=== PATIENT | male | born 1960 | race Hispanic/Latino ===

== ENCOUNTER 2016-04-03 12:18 | Inpatient (IN) | payer OTHER ==
[~2016-04-03] VITALS: Ht 165.1 cm; Wt 86.2 kg
[~2016-04-03 12:18] MED LIST: CITALOPRAM20 MG PO; DILAUDID2 MG PO; PERCOCET 325 MG1 TA2 PO; ZOFRAN ODT4 MG SL
--- NOTE | 2016-04-03 12:59 | ED GI/GU/ABDOMINAL COMPLAINT ---
History of Present Illness General Chief Complaint: Abdominal Pain/Flank Pain Stated Complaint: SEEN AT COMSTOCK FOR ABD. PAIN, NOT BETTER Source: patient, family Exam Limitations: no limitations Vital Signs & Intake/Output Vital Signs & Intake/Output Vital Signs Date Time Temp Pulse Resp B/P Pulse O2 O2 Flow FiO2 Ox Delivery Rate 04/04 0731 97.5 63 20 130/70 97 Room Air 04/03 2336 97.9 62 20 154/84 96 Room Air 04/03 2059 97.6 75 18 132/78 96 Room Air 04/03 1727 97.7 58 20 148/84 96 Room Air 04/03 1548 96.6 60 16 156/94 98 Room Air 04/03 1225 97.6 80 20 152/84 97 Room Air ED Intake and Output 04/04 0000 04/03 1200 Intake Total 2600 Output Total 1 Balance 2599 Intake, IV 2600 Output, Urine 1 Patient 190 lb Weight Allergies Coded Allergies: shrimp (Intermediate, EDEMA 04/03/16) Triage Note: PT C/O ABDOMINAL PAIN WITH N/V X 10 DAYS. SEEN AT COMSTOCK FOR SAME ON THE . PT STATES HE CAN'T SLEEP AT NIGHT D/T THE PAIN Triage Nurses Notes Reviewed? yes Duration: getting worse, intermittent Timing: recent history Severity Numbers: 7 Location: right upper quadrant Radiation: back Activities at Onset: eating Prior Abdominal Problems: similar symptoms HPI: Patient is a 55-year-old male with a past medical history of type 2 diabetes, insulin-dependent, pancreatitis, and recurrent gallstones who presents emergency room with concerns of a remote history of 5 years of right upper quadrant pain which patient was seen at [facility] on 03/26/2016 for concerns of right upper quadrant pain. Patient did bring blood work in showing ultrasound report of multiple calculi and gallstone however no concerns of gallbladder infection. Patient does present with daughter who does translate and which daughter states that patient recently moved in with her from [facility] and does not have a primary care doctor or surgeon to follow-up with. Patient states that he's had multiple episodes of nonbloody nonbilious emesis and is been intolerable of by mouth and last 24 hours. Currently complains of 7 at 10 localized right upper quadrant pain. Last alcoholic beverage WAS THREE BEERS ON . Last bowel movement was in last 24 hours no blood no melena noted. (HIMANSHU AYON) Reconcile Medications HYDROMORPHONE HCL (Dilaudid) 2 MG TABLET 1 TAB PO TID PAIN Hydroxyzine Pamoate 50 MG CAPSULE 1 CAP PO DAILY ANXIETY (Reported) Insulin-Lantus (Lantus) 100 UNIT/ML VIAL DIABETES (Reported) Ondansetron (Zofran Odt) 4 MG TAB.RAPDIS 1 TAB SL Q8 NAUSEA OXYCODONE HCL/ACETAMINOPHEN (Percocet 5-325 MG Tablet) 325 MG/5 MG TAB 1-2 TAB PO Q4-6 PRN PRN PAIN Pantoprazole Sodium 20 MG TABLET.DR 20 MG PO DAILY GERD (Reported) Sertraline HCl 100 MG TABLET 150 MG PO DAILY DEPRESSION (Reported) Tamsulosin HCl 0.4 MG CAP.ER.24H 0.4 MG PO DAILY PROSTATE (Reported) (DIONICIO THURSTON,ANUJA) Past History Travel History Traveled to [place] past 21 day No Medical History Any Pertinent Medical History? see below for history Psychiatric: depression Endocrine: diabetes Surgical History Surgical History: appendectomy Psychosocial History What is your primary language Macedonian Tobacco Use: Current Daily Use Daily Tobacco Use Amount/Type: => 5 Cigarettes daily ETOH Use: denies use Illicit Drug Use: denies illicit drug use Family History Hx Contributory? No (HIMANSHU AYON) Review of Systems Review of Systems Constitutional: Reports: see HPI. EENTM: Reports: no symptoms. Respiratory: Reports: no symptoms. Cardiovascular: Reports: no symptoms. GI: Reports: see HPI, abdominal pain, nausea. Genitourinary: Reports: no symptoms. Musculoskeletal: Reports: no symptoms. Skin: Reports: no symptoms. Neurological/Psychological: Reports: no symptoms. Hematologic/Endocrine: Reports: no symptoms. Immunologic/Allergic: Reports: no symptoms. All Other Systems: Reviewed and Negative (HIMANSHU AYON) Physical Exam Physical Exam General Appearance: mild distress Gastrointestinal: normal bowel sounds, soft, MODERATE RIGHT UPPER QUADRANT PAIN, POSITIVE [place] SIGN, NO EPIGASTRIC PAIN, NO REBOUND TENDERNESS NO PERITONEAL SIGNS Comments: HEENT: Normal EENT exam, extraocular motion intact, no nystagmus. Pupils equally round and reactive to light and accommodation. Nose is atraumatic. External auditory canal and Tympanic membranes clear. Pharynx normal. No swelling or edema. No icterus Neck: Supple, no lymphadenopathy, normal range of motion without pain or tenderness Back: Nontender, RIGHT CVA tenderness. Cardiovascular: Regular rate and rhythms no murmurs rubs or gallops, normal JVP Respiratory: Chest nontender. No respiratory distress.breath sounds clear to auscultation bilaterally Extremity: No edema, no calf tenderness to palpation, normal and equal pulses. Neuro: Alert oriented x3, motor sensory normal, Skin: No appreciable rash on exposed skin, skin is warm and dry. No jaundice Psych: Mood and affect is normal, memory and judgment is normal. Core Measures ACS in differential dx? No Severe Sepsis Present: No Septic Shock Present: No (DRAKE ARANDA,HIMANSHU) Progress Differential Diagnosis: AAA, AMI, biliary colic, bowel obstruction, colon cancer , cholecystitis, diverticulitis, epididymitis, esophageal varices, gastritis, hepatitis, hernia, hemorrhoids, ischemic bowel, inflamm bowel dis, Leslie-Eliza tear, orchitis, pancreatitis, prostatitis, peptic ulcer, PUD/GERD, perforated viscous, pyelonephritis, SBO, STD, testicular torsion, ureterolithiasis, urinary retention, urethritis, UTI/pyelo Plan of Care: Orders Procedure Date/time Status Nothing by Mouth 04/04 B Active VIT D 25 HYDROXY 04/04 06 Complete RBC FOLATE Ref$ 04/04 0600 Active HEPATIC FUNCTION PANEL 04/04 06 Complete CBC WITHOUT DIFFERENTIAL 04/04 06 Complete BASIC ELECTROLYTES PLUS BUN&CR 04/04 06 Complete VITAMIN B12 04/04 0600 Complete Vital Signs 04/03 2213 Active Teach/Educate 04/03 221 Active Nutritional Intake, Monitor 04/03 221 Active Isolation 04/03 2213 Active Intake & Output 04/03 2213 Active Patient Care Conference 04/03 2213 Active Activity/Ambulation 04/03 2213 Active BLOOD CULTURE 04/03 205 Active Pathway - chart 04/03 2001 Active Pathway - chart 04/03 1999 Active Patient Data 04/03 1999 Active Patient Data 04/03 1627 Active Admit to inpatient 04/03 1613 Active Vital Signs 04/03 1613 Active Code Status 04/03 1613 Active LACTIC ACID 04/03 1603 Complete EKG 04/03 1440 Active Add-on Test (ER Only) 04/03 1420 Active Add-on Test (ER Only) 04/03 1354 Active CULTURE,URINE 04/03 1335 Active Intake & Output 04/03 1332 Active ETHANOL 04/03 1317 Complete URINALYSIS 04/03 1304 Complete PARTIAL THROMBOPLASTIN TIME 04/03 1304 Complete PROTHROMBIN TIME 04/03 1304 Complete TYPE & SCREEN (NOT X-MATCH) 04/03 1304 Complete TROPONIN LEVEL 04/03 1303 Complete LIPASE 04/03 1303 Complete LACTIC ACID 04/03 1303 Complete DIRECT BILIRUBIN 04/03 1303 Complete COMPREHENSIVE METABOLIC PANEL 04/03 1303 Complete CBC WITHOUT DIFFERENTIAL 04/03 1303 Complete AMYLASE 04/03 1303 Complete ACETONE 04/03 1303 Complete House Staff 04/03 UNK Active VTE Mechanical Prophylaxis 04/03 UNK Active FingerStick- Glucose 04/03 UNK Active Current Medications Sig/Danuta Start time Last Medication Dose Stop Time Status Admin Gabapentin 100 MG Q8 04/04 1400 UNVr (Neurontin) Dextrose/Lactated 1,000 ML Q8H 04/04 1030 UNVr Ringer's (D5W in Lactated Ringers) Insulin Detemir 20 UNITS BID 04/04 1020 UNVr (Levemir) Insulin Detemir 30 UNITS BID 04/04 1000 CAN (Levemir) Insulin Aspart 0 TIDAC 04/04 0800 AC (NovoLOG) Acetaminophen 650 MG Q4P PRN 04/03 2100 AC (Tylenol) Ondansetron HCl 4 MG Q6P PRN 04/03 2100 AC (Zofran) Acetaminophen 650 MG Q6P PRN 04/03 2000 CAN (Tylenol) Laboratory Tests 04/04/16 0650: RBC Folate Pending 04/04/16 0650: Anion Gap 9, Estimated GFR > 60, BUN/Creatinine Ratio 8.6, Total Bilirubin 1.3, Direct Bilirubin 0.7 H, AST 44, ALT 47, Alkaline Phosphatase 104, Total Protein 5.9 L, Albumin 2.7 L, Vitamin B12 877, 25-OH Vitamin D Total 12.7 L, CBC w Diff NO MAN DIFF REQ, RBC 3.82 L, MCV 93.2, MCH 32.1 H, RDW 14.3, MPV 8.0, Gran % 54.0, Lymphocytes % 31.7, Monocytes % 9.5 H, Eosinophils % 4.3, Basophils % 0.5, Absolute Granulocytes 2.5, Absolute Lymphocytes 1.5, Absolute Monocytes 0.4, Absolute Eosinophils 0.2, Absolute Basophils 0, PUBS MCHC 34.5 04/03/16 1520: Lactic Acid 1.6 04/03/16 1335: Urinalysis LIGHT H, Urine Color MEHDI, Urine Clarity CLEAR, Urine pH 6.5, Ur Specific [place] 1.015, Urine Protein TRACE H, Urine Ketones NEG, Urine Nitrite NEG, Urine Bilirubin POS@ICTO H, Urine Urobilinogen 4.0 H, Ur Leukocyte Esterase NEG, Ur Microscopic SEDIMENT EXAMINED, Urine RBC 3-5, Urine WBC 1-3 H, Ur Epithelial Cells FEW, Urine Mucus FEW, Urine Hemoglobin TRACE-INTACT H, Urine Glucose >=1000 H 04/03/16 1317: Anion Gap 13, Estimated GFR > 60, BUN/Creatinine Ratio 11.7, Glucose 248 H, Lactic Acid 2.2 H, Calcium 8.6, Total Bilirubin 1.5 H, Direct Bilirubin 0.9 H , AST 51, ALT 57, Alkaline Phosphatase 161 H, Troponin I < 0.01, Total Protein 7.0, Albumin 3.3 L, Globulin 3.7, Albumin/Globulin Ratio 0.9 L, Amylase 156 H , Lipase 544 H, PT 12.0, INR 1.14, APTT 32, CBC w Diff NO MAN DIFF REQ, RBC 4.43 L, MCV 92.2, MCH 32.0 H, RDW 14.4, MPV 8.5, Gran % 68.0, Lymphocytes % 21.7, Monocytes % 8.3, Eosinophils % 1.8, Basophils % 0.2, Absolute Granulocytes 3.2, Absolute Lymphocytes 1.0 L, Absolute Monocytes 0.4, Absolute Eosinophils 0.1, Absolute Basophils 0, PUBS MCHC 34.7, Serum Alcohol < 10.0, Acetone Level NEGATIVE 04/03/16 1305: Acetone Level Cancelled 04/03/16 1304: Troponin I Cancelled Microbiology 04/04 0020 BLOOD: Blood Culture - RECD 04/04 0005 BLOOD: Blood Culture - RECD 04/03 1335 URINE ROUT: Urine Culture - RES ER records indicate unremarkable liver function test 1.4 total bilirubin WBC 7.1 platelets 85 LAST LIPASE - 99 AT COMSTOCK FROM COMSTOCK- Patient was given medications of Maalox Toradol Xylocaine and Zofran 04/03/2016 1:57:26 PM-patient states that he had minimal improvement of the symptoms. Patient's urinalysis did show many bacteria which patient also had right-sided CVA point tenderness in which there is concerns of pyelonephritis ketorolac will be administered 04/03/2016 2:39:12 PM patient was made aware of concerns of gallstones with no cholecystitis however patient does have concerns of pancreatitis however no concerns of gallstone pancreatitis and THE COMMON bile duct was within normal range. Patient had complaints of scant urination production and had many WBC noted in urine and which urine currently is cultured however CT scan WAS ORDERED for concerns of pyelonephritis and further evaluation of his abdominal complaints. Discussed patient with Dr. GREENBERG who agrees with disposition and plan. Patient will be nothing by mouth (DRAKE ARANDA,HIMANSHU) Diagnostic Imaging: Viewed by Me: Ultrasound. Radiology Impression: SEE COMMENTS Initial ED EKG: normal p-waves, normal QRS complex, 62 BPM, LVH Comments: PATIENT: SAYRA COBOS PRESENT AGE: 55 PATIENT ACCOUNT NO: [id number] : 59 LOCATION: [facility] ORDERING PHYSICIAN: HIMANSHU ARANDA SERVICE DATE: 04/03/16 EXAM TYPE: CAT - CT ABD & PELVIS W IV CONTRAST EXAMINATION: CT ABDOMEN AND PELVIS WITH CONTRAST CLINICAL INFORMATION: Right upper quadrant pain. Gallstone pancreatitis. COMPARISON: Ultrasound of abdomen 04/03/2016. CT abdomen and pelvis 08/29/2013. TECHNIQUE: Multidetector volumetric imaging was performed of the abdomen and pelvis before and after the IV administration of 95 mL of Optiray 320 intravenous contrast. Sagittal and coronal reformatted images were obtained on the technologist's workstation. DLP: 447.35 mGy-cm. FINDINGS: LUNG BASES: The visualized lung bases are unremarkable. LIVER, GALLBLADDER, AND BILIARY TREE: There is mild lobulation of the surface of the liver consistent with cirrhosis. No focal liver lesion. No intrahepatic bile duct dilatation. There are numerous small partially calcified gallstones layering dependently in the neck of the gallbladder. No gallbladder wall thickening. No bile duct dilatation. The extrahepatic CBD measures 5 mm and tapers to the ampulla with no calcified stone within the duct. PANCREAS: Unremarkable. SPLEEN: The spleen is enlarged. Measures 15.1 cm superior inferior. ADRENAL GLANDS: Unremarkable. KIDNEYS AND URETERS: The kidneys are normal in size, shape, and attenuation. No hydronephrosis, hydroureter, or calculi seen. No perinephric stranding. The small renal stones noted on the CT scan abdomen pelvis of 08/29/2013 not apparent on this exam which used IV contrast. BLADDER: Unremarkable. GASTROINTESTINAL TRACT: There are scattered diverticula of the colon. No diverticulitis. No acute change of the bowel. No bowel obstruction. No bowel wall thickening or edema. The appendix is normal. The small bowel loops are normal. ABDOMINAL WALL: There is a right-sided spigelian hernia. There is a defect in the right lateral abdominal wall at the level of the iliac crest fat herniating through the defect. The defect measures 3.8 cm transverse axial image 446 (3). The herniated fat pocket measures 10 x 3 x 7 cm. There is a superficial fascial plane containing a herniated fat from the subcutaneous tissue. LYMPH NODES: Normal. VASCULAR: No evidence of portal hypertension. There is a recannulated umbilical vein. Normal enhancement of the portal vein and splenic vein with no thrombosis. PELVIC VISCERA: Prostate measures 4.3 cm transverse. Seminal vesicles unremarkable. OSSEOUS STRUCTURES: Bridging degenerative osteophytes at the lower thoracic vertebrae. Small degenerative spurs of the endplates of lumbar vertebrae. IMPRESSION: 1. Cholelithiasis. No acute change of gallbladder wall. No bile duct dilatation. Normal pancreas. 2. Mild diverticulosis of colon. No acute change of bowel. 3. Changes of cirrhosis of liver with lobular contour of liver and recannulated umbilical vein and splenomegaly from portal hypertension. 4. Fat-containing right-sided spigelian ventral wall hernia DICTATED BY: SILVIA FRASER MD PATIENT: SAYRA COBOS PRESENT AGE: 55 PATIENT ACCOUNT NO: [id number] : 58 LOCATION: [facility] ORDERING PHYSICIAN: HIMANSHU ARANDA SERVICE DATE: 04/03/16-4047 EXAM TYPE: US - US-LIMITED ABDOMEN EXAMINATION: US ABDOMEN LIMITED CLINICAL INFORMATION: Right upper quadrant pain; history of gallstones. COMPARISON: Abdominal ultrasound examinations dated 08/31/2013 and 08/29/2013; CT abdomen and pelvis dated 08/29/2013. TECHNIQUE: Real-time imaging of the right upper quadrant abdominal viscera. FINDINGS: PANCREAS: Somewhat diminutive but normal in echotexture, without focal finding. The pancreatic tail is suboptimally seen secondary to overlapping bowel gas. LIVER: Normal. The liver demonstrates normal size, a mildly lobulated contour and echogenicity. No focal lesion or intrahepatic biliary duct dilatation. GALLBLADDER: There is cholelithiasis. The gallbladder is physiologically distended without evidence of polyps, wall thickening or pericholecystic fluid. COMMON BILE DUCT: Normal in caliber measuring 0.4 cm in diameter. RIGHT KIDNEY: Normal. No hydronephrosis. No renal calculi or focal parenchymal lesions. The kidney measures 9.4 cm in maximum dimension. FREE FLUID: None. IMPRESSION: 1. There is cholelithiasis, without cholecystitis or choledocholithiasis. 2. Limited ultrasound evaluation of the pancreas. (HIMANSHU AYON) Departure Departure Disposition: STILL A PATIENT Condition: Stable Clinical Impression Primary Impression: Pancreatitis Secondary Impressions: Gallstone, Hyperglycemia, UTI (urinary tract infection) Referrals: PATIENT HAS NO PRIMARY CARE DR (PCP/Family) Departure Forms: Customer Survey General Discharge Information Admission Note Spoke With: NICK ROLLINS MD Documentation of Exam: Documentation of any treatments & extenuating circumstances including Concerns Regarding Discharge (functional status, medication knowledge or non-compliance, living conditions, etc.) that warrant an admission rather than observation: [ Discussed patient with Dr. ROLLINS who agrees with general medicine admission for conditions and pancreatitis gallstones and urinary tract infection which patient requires GI consultation surgery consultation IV antibiotics IV pain medication and IV antibiotics. Outpatient treatment at this time due to unresolved pain and nausea and concerns of gallstone pancreatitis would be medically harmful] (HIMANSHU AYON) PA/ELECTROPHYSIOLOGY TECH Co-Sign Statement Statement: ED Attending supervision documentation- [] I saw and evaluated the patient. I have also reviewed all the pertinent lab results and diagnostic results. I agree with the findings and the plan of care as documented in the PA's/ELECTROPHYSIOLOGY TECH's documentation. [X] I have reviewed the ED Record and agree with the PA's/ELECTROPHYSIOLOGY TECH's documentation. [] Additions or exceptions (if any) to the PAs/ELECTROPHYSIOLOGY TECH's note and plan are summarized below: [] (DIONICIO THURSTON,ANUJA)
[2016-04-03 13:38] LABS: ABSOLUTE BASOPHIL COUNT 0 /CUMM (0.0-0.2); ABSOLUTE EOSINOPHIL COUNT 0.1 /CUMM (0.0-0.7); ABSOLUTE GRANULOCYTE CT 3.2 /CUMM (1.4-6.5); ABSOLUTE MONOCYTE COUNT 0.4 /CUMM (0.10-0.60); BASOPHIL % 0.2 % (0.0-2.0); EOSINOPHIL % 1.8 % (0-5); HEMATOCRIT 40.8 % (42-52); MEAN CORPUSCULAR HGB CONC 34.7 G/DL (33.0-37.0); MEAN CORPUSCULAR VOLUME 92.2 FL (80.0-94.0); MEAN PLATELET VOLUME 8.5 FL (7.4-10.4); PLATELET COUNT 70 /CUMM (130-400); RBC DISTRIBUTION WIDTH 14.4 % (11.5-14.5); RED BLOOD CELL CT 4.43 /CUMM (4.70-6.10); WHITE BLOOD CELL COUNT 4.8 /CUMM (4.8-10.8)
[2016-04-03 13:46] LABS: PTT 32 SEC (25-37)
--- NOTE | 2016-04-03 14:07 | ULTRASOUND REPORT ---
EXAMINATION: US ABDOMEN LIMITED CLINICAL INFORMATION: Right upper quadrant pain; history of gallstones. COMPARISON: Abdominal ultrasound examinations dated 08/31/2013 and 08/29/2013; CT abdomen and pelvis dated 08/29/2013. TECHNIQUE: Real-time imaging of the right upper quadrant abdominal viscera. FINDINGS: PANCREAS: Somewhat diminutive but normal in echotexture, without focal finding. The pancreatic tail is suboptimally seen secondary to overlapping bowel gas. LIVER: Normal. The liver demonstrates normal size, a mildly lobulated contour and echogenicity. No focal lesion or intrahepatic biliary duct dilatation. GALLBLADDER: There is cholelithiasis. The gallbladder is physiologically distended without evidence of polyps, wall thickening or pericholecystic fluid. COMMON BILE DUCT: Normal in caliber measuring 0.4 cm in diameter. RIGHT KIDNEY: Normal. No hydronephrosis. No renal calculi or focal parenchymal lesions. The kidney measures 9.4 cm in maximum dimension. FREE FLUID: None. IMPRESSION: 1. There is cholelithiasis, without cholecystitis or choledocholithiasis. 2. Limited ultrasound evaluation of the pancreas.
[2016-04-03] MEDS ORDERED: PANTOPRAZOLE SO20 M1 PO (14:22)
[2016-04-03] MEDS ORDERED: SERTRALINE HCL100 MG PO (14:23)
[2016-04-03] MEDS ORDERED: LANTUS100 UNIT/1 SQ (14:23)
[2016-04-03] MEDS ORDERED: TAMSULOSIN HCL0.4 M1 PO (14:24)
--- NOTE | 2016-04-03 15:10 | CT SCAN REPORT ---
EXAMINATION: CT ABDOMEN AND PELVIS WITH CONTRAST CLINICAL INFORMATION: Right upper quadrant pain. Gallstone pancreatitis. COMPARISON: Ultrasound of abdomen 04/03/2016. CT abdomen and pelvis 08/29/2013. TECHNIQUE: Multidetector volumetric imaging was performed of the abdomen and pelvis before and after the IV administration of 95 mL of Optiray 320 intravenous contrast. Sagittal and coronal reformatted images were obtained on the technologist's workstation. DLP: 447.35 mGy-cm. FINDINGS: LUNG BASES: The visualized lung bases are unremarkable. LIVER, GALLBLADDER, AND BILIARY TREE: There is mild lobulation of the surface of the liver consistent with cirrhosis. No focal liver lesion. No intrahepatic bile duct dilatation. There are numerous small partially calcified gallstones layering dependently in the neck of the gallbladder. No gallbladder wall thickening. No bile duct dilatation. The extrahepatic CBD measures 5 mm and tapers to the ampulla with no calcified stone within the duct. PANCREAS: Unremarkable. SPLEEN: The spleen is enlarged. Measures 15.1 cm superior inferior. ADRENAL GLANDS: Unremarkable. KIDNEYS AND URETERS: The kidneys are normal in size, shape, and attenuation. No hydronephrosis, hydroureter, or calculi seen. No perinephric stranding. The small renal stones noted on the CT scan abdomen pelvis of 08/29/2013 not apparent on this exam which used IV contrast. BLADDER: Unremarkable. GASTROINTESTINAL TRACT: There are scattered diverticula of the colon. No diverticulitis. No acute change of the bowel. No bowel obstruction. No bowel wall thickening or edema. The appendix is normal. The small bowel loops are normal. ABDOMINAL WALL: There is a right-sided spigelian hernia. There is a defect in the right lateral abdominal wall at the level of the iliac crest fat herniating through the defect. The defect measures 3.8 cm transverse axial image 446 (3). The herniated fat pocket measures 10 x 3 x 7 cm. There is a superficial fascial plane containing a herniated fat from the subcutaneous tissue. LYMPH NODES: Normal. VASCULAR: No evidence of portal hypertension. There is a recannulated umbilical vein. Normal enhancement of the portal vein and splenic vein with no thrombosis. PELVIC VISCERA: Prostate measures 4.3 cm transverse. Seminal vesicles unremarkable. OSSEOUS STRUCTURES: Bridging degenerative osteophytes at the lower thoracic vertebrae. Small degenerative spurs of the endplates of lumbar vertebrae. IMPRESSION: 1. Cholelithiasis. No acute change of gallbladder wall. No bile duct dilatation. Normal pancreas. 2. Mild diverticulosis of colon. No acute change of bowel. 3. Changes of cirrhosis of liver with lobular contour of liver and recannulated umbilical vein and splenomegaly from portal hypertension. 4. Fat-containing right-sided spigelian ventral wall hernia
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
[2016-04-03 23:36] VITALS: BP 154/84
[2016-04-04] MEDS ORDERED: HYDROXYZINE PAM50 M1 PO (00:46)
[2016-04-04 07:31] VITALS: BP 130/70
[2016-04-04 08:18] LABS: ABSOLUTE BASOPHIL COUNT 0 /CUMM (0.0-0.2); ABSOLUTE EOSINOPHIL COUNT 0.2 /CUMM (0.0-0.7); ABSOLUTE GRANULOCYTE CT 2.5 /CUMM (1.4-6.5); ABSOLUTE MONOCYTE COUNT 0.4 /CUMM (0.10-0.60); BASOPHIL % 0.5 % (0.0-2.0)
--- NOTE | 2016-04-04 08:21 | PN- General Surgery ---
Surgical Brief Attending Note Brief Attending Note: pt seen and examined please keep npo as hx consistent with cholecystitis and will add on to OR schedule for today as long as his LFT'd so not increase. If pt has bump in LFT's than would get MRCP and GI consult to r/o CBD stone await repeat LFT's
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
[2016-04-04 08:52] LABS: ABSOLUTE LYMPH COUNT 1.5 /CUMM (1.2-3.4); EOSINOPHIL % 4.3 % (0-5); MEAN CORPUSCULAR HGB 32.1 PG (27.0-31.0); MEAN CORPUSCULAR HGB CONC 34.5 G/DL (33.0-37.0); MEAN CORPUSCULAR VOLUME 93.2 FL (80.0-94.0); RBC DISTRIBUTION WIDTH 14.3 % (11.5-14.5); RED BLOOD CELL CT 3.82 /CUMM (4.70-6.10); WHITE BLOOD CELL COUNT 4.7 /CUMM (4.8-10.8)
[2016-04-04 09:00] LABS: HEMATOCRIT 35.6 % (42-52)
[2016-04-04 10:17] LABS: PLATELET COUNT 66 /CUMM (130-400)
--- NOTE | 2016-04-04 13:39 | PN- Student ---
Subjective Subjective: This is a 55 yo M w. PMHx of T2DM, cholecystitis, recurrent pancreatitis and reccurent gallstones, recently seen at [facility] on 03/27 for multiple gall stones, who was admitted to [facility] on 04/03 after presenting w/ severe, sharp, constant RUQ pain radiating to the R flank that is worse with food and change in position. HPI: Pt reports pain in this distribution at 3-4/10 for the last 8 months, with a major progression in his symptoms in the last 8 days, at that time reaching a 9/ 10 and associated w/ fever, chills, nausea and nonbloody vomiting. He was seen at [facility] ED on 03/27 w/ the same symptoms and was diagnosed w/ multiple gallstones and sent home w/ omeprazole and pain mgmt. He was first diagnosed w/ pancreatitis in 2012 and was found to have multiple gallstones during a hospitilization in 2013 for cholecystitis. Cholecystectomy was odiscussed after infection calmed down, but pt wa slost to f/u. Pt also reports heavy alcohol use for many years, drinking at least 6 beers daily, until stopping 3 months ago. He currently reports no EtOH. PMHx: Depression, T2DM, recurrent pancreatitis, recurrent cholelithiasis SHx: Appendectomy FamHx non-contributory SocHx: Denies EtOH, rec drugs. Current smoker w/ 40 pack yr hx Current Medications Sig/Danuta Start time Last Medication Dose Stop Time Status Admin Acetaminophen 650 MG Q4P PRN 04/03 2100 AC (Tylenol) Acetaminophen 650 MG Q6P PRN 04/03 2000 CAN (Tylenol) Gabapentin 100 MG Q8 04/04 1400 AC (Neurontin) Hydromorphone HCl 0.6 MG ONCE ONE 04/04 1330 CAN (Dilaudid) 04/04 1331 Insulin Aspart 0 TIDAC 04/04 0800 AC (NovoLOG) Insulin Detemir 20 UNITS BID 04/04 1020 AC (Levemir) Insulin Detemir 30 UNITS BID 04/04 1000 CAN (Levemir) Ondansetron HCl 4 MG Q6P PRN 04/03 2100 AC (Zofran) Allergies: NKDA. Shrimp (swelling) Objective Objective: Vital Signs Date Time Temp Pulse Resp B/P Pulse O2 O2 Flow FiO2 Ox Delivery Rate 04/04 0731 97.5 63 20 130/70 97 Room Air 04/03 2336 97.9 62 20 154/84 96 Room Air 04/03 2059 97.6 75 18 132/78 96 Room Air 04/03 1727 97.7 58 20 148/84 96 Room Air 04/03 1548 96.6 60 16 156/94 98 Room Air PE: General - AOX3. Cooperative w/ interview although chiefly greek speaking. Pt is in clear discomfort upon movement Cardiac - RRR, S1S2, no m/r/g Lungs - CTA BL Abd - Soft, nondistended with extreme tenderness to palpation of RUQ or R flank. + Schwazr sign. Rest of the abdomen NTTP. No heaptomegaly noted. Ext - No edema noted. Last 24 Hours I&Os 04/04 1600 04/04 0800 04/04 0000 Intake Total 1600 1600 Output Total 775 Balance 825 1600 Intake, IV 1600 1600 Output, Urine 775 Patient 190 lb Weight Laboratory Tests 04/04/16 0650: RBC Folate Pending 04/04/16 0650: Anion Gap 9, Estimated GFR > 60, BUN/Creatinine Ratio 8.6, Total Bilirubin 1.3, Direct Bilirubin 0.7 H, AST 44, ALT 47, Alkaline Phosphatase 104, Total Protein 5.9 L, Albumin 2.7 L, Amylase 130 H, Lipase 337 H, Vitamin B12 877, 25-OH Vitamin D Total 12.7 L, CBC w Diff NO MAN DIFF REQ, RBC 3.82 L, MCV 93.2, MCH 32.1 H, RDW 14.3, MPV 8.0, Gran % 54.0, Lymphocytes % 31.7, Monocytes % 9.5 H, Eosinophils % 4.3, Basophils % 0.5, Absolute Granulocytes 2.5, Absolute Lymphocytes 1.5, Absolute Monocytes 0.4, Absolute Eosinophils 0.2, Absolute Basophils 0, PUBS MCHC 34.5 04/04/16 0600: Hemoglobin A1c Pending 04/03/16 1520: Lactic Acid 1.6 Microbiology Date/Time Procedure - Status Source Growth 04/04 0020 Blood Culture - RECD BLOOD 04/03 1335 Urine Culture - RES URINE ROUT Assessment/Plan Assessment: This is a 55 yo M w. PMHx of T2DM, cholecystitis, recurrent pancreatitis and reccurent gallstones, recently seen at [facility] on 03/27 for multiple gall stones, who was admitted to [facility] on 04/03 after presenting w/ severe, sharp, constant RUQ pain radiating to the R flank that is worse with food and change in position. Elevated amylase and lipase at ED, cholelithiasis per US/CT and urobiliogen + bilirubin positive UA were all c/w a potential acute pancreatitis. LFTs were also elevated, although mildly so, causing concern per surgical consult for CBD stone requiring MRCP for confirmation, and then ERCP for tx, if that was the case. If LFTs on 04/04 remain stable, pt can be added to OR list for cholecystectomy today. Problem list includes (1) Acute pancreatitis (2) Cholelithiasis (3) T2DM (4) GERD (5) BPH Plan: 1) Acute pancreatitis and cholelithiasis -Surgical consult Dr. Lester = can be added to OR list today if LFTs remain stable -F/U LFTs -Bump in LFTs on 04/04, schedule for MRCP per surgical consult -Remain NPO -Zofran PRN for nausea -Pain mgmt on board -GI consult 2) T2DM -Continue home levemir 3) GERD -Continue omeprazole 20mg PO QD 4) BPH -Tamulosin .4mg PO QD
--- NOTE | 2016-04-04 13:57 | Cons- Gastroenterology ---
General Information and HPI Consulting Request Date of Consult: 04/04/16 Requested By: NICK ROLLINS MD Reason for Consult: Gallstone pancreatitis, increased LFTs, abdominal pain Source of Information: patient, old records Exam Limitations: language barrier History of Present Illness: Mr. Iqbal is a 55 year old male who presented to yesterday with complaints of RUQ pain and vomiting that he has been having for the past month and 2 weeks respectively. He has mid-epigastric abdominal pain that is exacerbated with eating and radiates to his RUQ and to the back. The pain is associated with bilious vomiting. He notes subjective intermittent fevers and chills at home. He has not noticed any jaundice, florence colored stool or dark urine. He does note that his stool has been blackish green with a scant amount of blood. He notes that the symptoms he has been having are similar in quality and severity as his prior attacks of pancreatitis. He is without any significant constipation or diarrhea. He does complain of some burning epigastric pain and early satiety for the past month that he is not taking any antacids for. In the ER he was afebrile and hemodynamically stable. He was given morphine for pain and had a surgical consultation who are planning to do a cholecystectomy later today provided his LFTs don't increase. He has been kept NPO and he continues to have some abdominal discomfort. Allergies/Medications Allergies: Coded Allergies: shrimp (Intermediate, EDEMA 04/03/16) Home Med List: HYDROMORPHONE HCL (Dilaudid) 2 MG TABLET 1 TAB PO TID PAIN Hydroxyzine Pamoate 50 MG CAPSULE 1 CAP PO DAILY ANXIETY (Reported) Insulin-Lantus (Lantus) 100 UNIT/ML VIAL DIABETES (Reported) Ondansetron (Zofran Odt) 4 MG TAB.RAPDIS 1 TAB SL Q8 NAUSEA OXYCODONE HCL/ACETAMINOPHEN (Percocet 5-325 MG Tablet) 325 MG/5 MG TAB 1-2 TAB PO Q4-6 PRN PRN PAIN Pantoprazole Sodium 20 MG TABLET.DR 20 MG PO DAILY GERD (Reported) Sertraline HCl 100 MG TABLET 150 MG PO DAILY DEPRESSION (Reported) Tamsulosin HCl 0.4 MG CAP.ER.24H 0.4 MG PO DAILY PROSTATE (Reported) Current Medications: Current Medications Sig/Danuta Start time Last Medication Dose Route Stop Time Status Admin Acetaminophen 650 MG Q4P PRN 04/03 2100 AC PO Acetaminophen 650 MG Q6P PRN 04/03 2000 CAN PO Ceftriaxone Sodium 0 .STK-MED ONE 04/03 1556 DC .ROUTE Ceftriaxone Sodium 1,000 MG ONCE ONE 04/03 1530 DC 04/03 IV 04/03 1531 1559 Dextrose 25 GM .STK-MED ONE 04/04 1008 DC IV 04/04 1009 Dextrose 25 GM ONCE ONE 04/04 0700 DC 04/04 IV 04/04 0701 0658 Dextrose 25 GM ONCE ONE 04/03 2330 DC 04/03 IV 04/03 2331 2330 Dextrose/Lactated 1,000 ML Q8H 04/04 1030 AC 04/04 Ringer's IV 1052 Docusate Sodium 100 MG BID 04/03 2200 AC 04/04 PO 0829 Enoxaparin Sodium 40 MG DAILY 04/03 1959 AC 04/04 SC 0051 Gabapentin 100 MG Q8 04/04 1400 AC PO Hydromorphone HCl 2 MG Q4P PRN 04/04 1400 UNVr IV Hydromorphone HCl 0.6 MG ONCE ONE 04/04 1330 CAN IV 04/04 1331 Hydromorphone HCl 1 MG Q4P PRN 04/04 1030 DC 04/04 IV 1051 Hydroxyzine HCl 50 MG DAILY 04/04 1000 AC 04/04 PO 0829 Influenza Virus 0.5 ML 1000 04/04 1000 DC Vaccine IM 04/04 1001 Insulin Aspart 0 TIDAC 04/04 0800 AC SC Insulin Detemir 20 UNITS BID 04/04 1020 AC SC Insulin Detemir 40 UNITS 1000 04/04 1000 DC SC Insulin Detemir 30 UNITS BID 04/04 1000 CAN SC Insulin Detemir 60 UNITS 2200 04/03 2200 DC SC Ketorolac 30 MG ONCE ONE 04/04 1330 DC 04/04 Tromethamine IV 04/04 1331 1336 Ketorolac 0 .STK-MED ONE 04/03 1406 DC Tromethamine .ROUTE Ketorolac 30 MG ONCE ONE 04/03 1400 DC 04/03 Tromethamine IV 04/03 1401 1413 Lactated Ringer's 1,000 ML Q6H 04/03 1945 DC 04/04 IV 0533 Morphine Sulfate 4 MG Q4P PRN 04/03 1830 DC 04/04 IV 0829 Morphine Sulfate 0 .STK-MED ONE 04/03 1821 DC .ROUTE Morphine Sulfate 2 MG ONCE ONE 04/03 1600 DC 04/03 IV 04/03 1601 1559 Morphine Sulfate 0 .STK-MED ONE 04/03 1556 DC .ROUTE Omeprazole 20 MG DAILY AC 04/04 0700 AC 04/04 PO 0533 Ondansetron HCl 4 MG Q6P PRN 04/03 2100 AC IV Oxycodone/ 0 .STK-MED ONE 04/03 2057 DC Acetaminophen PO Oxycodone/ 1 TAB Q6P PRN 04/03 2000 AC 04/04 Acetaminophen PO 0424 Senna/Docusate Sodium 1 TAB AT BEDTIME 04/03 2200 AC 04/04 PO 0050 Sodium Chloride 1,000 ML BOLUS ONE 04/03 1500 DC 04/03 IV 04/03 1559 1523 Sodium Chloride 1,000 ML BOLUS ONE 04/03 1315 DC 04/03 IV 04/03 1414 1331 Tamsulosin HCl 0.4 MG DAILY 04/04 1000 AC 04/04 PO 0829 Past History Travel History Traveled to [place] past 21 day No Medical History Blood Transfusion Hx: Yes Neurological: NONE EENT: NONE Cardiovascular: NONE Respiratory: NONE Gastrointestinal: pancreatitis Hepatic: cholelithiasis Renal: nephrolithiasis Musculoskeletal: falls, ARTHIRITIS Psychiatric: alcohol dependence, anxiety, depression Endocrine: diabetes Blood Disorders: NONE Cancer(s): NONE DESIGNER/Reproductive: NONE Surgical History Surgical History: appendectomy, GALLBLADDER STONE REMOVED L UPPER ARM FX REPAIR Psychosocial History Where Do You Live? Home Services at Home: None Smoking Status: Current Everyday Smoker ETOH Use: denies use Illicit Drug Use: denies illicit drug use Functional Ability ADLs Independent: dressing, eating, toileting, bathing. Ambulation: independent IADLs Needs Assist: shopping, housework, finances, food prep, telephone, transportation, medication admin. Review of Systems Review of Systems Constitutional: Reports: chills, fever, malaise. EENTM: Reports: blurred vision. Cardiovascular: Denies: no symptoms. Respiratory: Denies: no symptoms. GI: Reports: see HPI. Genitourinary: Denies: no symptoms. Musculoskeletal: Reports: joint pain, muscle pain. Skin: Denies: no symptoms. Neurological/Psychological: Reports: headache. Hematologic/Endocrine: Denies: no symptoms. Immunologic/Allergic: Denies: no symptoms. All Other Systems: Reviewed and Negative Exam & Diagnostic Data Vital Signs and I&O Vital Signs Date Time Temp Pulse Resp B/P Pulse O2 O2 Flow FiO2 Ox Delivery Rate 04/04 0731 97.5 63 20 130/70 97 Room Air 04/03 2336 97.9 62 20 154/84 96 Room Air 04/03 2059 97.6 75 18 132/78 96 Room Air 04/03 1727 97.7 58 20 148/84 96 Room Air 04/03 1548 96.6 60 16 156/94 98 Room Air Intake & Output 04/04 1600 04/04 0400 04/03 1600 04/03 0400 04/02 1600 04/02 0400 Intake Total 1600 1600 1000 Output Total 775 1 Balance 825 1600 999 Intake, IV 1600 1600 1000 Output, Urine 775 1 Patient 190 lb 190 lb Weight Physical Exam General Appearance: well developed/nourished, alert, awake, mild distress Head: atraumatic, normal appearance Eyes: Bilateral: normal appearance, other (no scleral icterus). Ears, Nose, Throat: normal pharynx, normal ENT inspection Neck: normal inspection, supple, full range of motion Respiratory: normal breath sounds, chest non-tender Cardiovascular: regular rate/rhythm Gastrointestinal: normal bowel sounds, soft, tenderness, RUQ pain/ equivocal Schwarz's sign Rectal: deferred Back: normal inspection Extremities: normal inspection, no edema Neurologic/Psych: no motor/sensory deficits, awake, alert, oriented x 3 Skin: intact, normal color Results Pertinent Lab Results: Laboratory Tests 04/04 04/04 04/04 0650 0650 0600 Chemistry Sodium (137 - 145 mmol/L) 138 Potassium (3.5 - 5.1 mmol/L) 3.9 Chloride (98 - 107 mmol/L) 99 Carbon Dioxide (22 - 30 mmol/L) 30 Anion Gap (5 - 16) 9 BUN (9 - 20 mg/dL) 6 L Creatinine (0.7 - 1.2 mg/dL) 0.7 Estimated GFR (>60 ml/min) > 60 BUN/Creatinine Ratio (7 - 25 %) 8.6 Hemoglobin A1c Pending Total Bilirubin (0.2 - 1.3 mg/dL) 1.3 Direct Bilirubin (< 0.4 mg/dL) 0.7 H AST (17 - 59 U/L) 44 ALT (21 - 72 U/L) 47 Alkaline Phosphatase (< 127 U/L) 104 Total Protein (6.3 - 8.2 g/dL) 5.9 L Albumin (3.5 - 5.0 g/dL) 2.7 L Amylase (30 - 110 U/L) 130 H Lipase (23 - 300 U/L) 337 H Vitamin B12 (239 - 931 pg/mL) 877 25-OH Vitamin D Total (30 - 100 ng/ml) 12.7 L RBC Folate Pending Hematology CBC w Diff NO MAN DIFF REQ WBC (4.8 - 10.8 /CUMM) 4.7 L RBC (4.70 - 6.10 /CUMM) 3.82 L Hgb (14.0 - 18.0 G/DL) 12.3 L Hct (42 - 52 %) 35.6 L MCV (80.0 - 94.0 FL) 93.2 MCH (27.0 - 31.0 PG) 32.1 H RDW (11.5 - 14.5 %) 14.3 Plt Count (130 - 400 /CUMM) 66 L MPV (7.4 - 10.4 FL) 8.0 Gran % (42.2 - 75.2 %) 54.0 Lymphocytes % (20.5 - 51.1 %) 31.7 Monocytes % (1.7 - 9.3 %) 9.5 H Eosinophils % (0 - 5 %) 4.3 Basophils % (0.0 - 2.0 %) 0.5 Absolute Granulocytes (1.4 - 6.5 /CUMM) 2.5 Absolute Lymphocytes (1.2 - 3.4 /CUMM) 1.5 Absolute Monocytes (0.10 - 0.60 /CUMM) 0.4 Absolute Eosinophils (0.0 - 0.7 /CUMM) 0.2 Absolute Basophils (0.0 - 0.2 /CUMM) 0 PUBS MCHC (33.0 - 37.0 G/DL) 34.5 04/03 04/03 1520 1335 Chemistry Lactic Acid (0.7 - 2.1 mmol/L) 1.6 Urines Urinalysis LIGHT H Urine Color (YEL,AMB,STR) MEHDI Urine Clarity (CLEAR) CLEAR Urine pH (5.0 - 8.0) 6.5 Ur Specific Goodman (1.001 - 1.035) 1.015 Urine Protein (NEG,<30 MG/DL) TRACE H Urine Ketones (NEG) NEG Urine Nitrite (NEG) NEG Urine Bilirubin (NEG) POS@ICTO H Urine Urobilinogen (0.1 - 1.0 EU/dl) 4.0 H Ur Leukocyte Esterase (NEG) NEG Ur Microscopic SEDIMENT EXAMINED Urine RBC (0 - 5 /HPF) 3-5 Urine WBC (0 - 2 /HPF) 1-3 H Ur Epithelial Cells (NONE,FEW) FEW Urine Mucus (FEW,NONE) FEW Urine Hemoglobin (NEG) TRACE-INTACT H Urine Glucose (N MG/DL) >=1000 H 04/03 04/03 04/03 1317 1305 1304 Chemistry Sodium (137 - 145 mmol/L) 139 Potassium (3.5 - 5.1 mmol/L) 3.8 Chloride (98 - 107 mmol/L) 101 Carbon Dioxide (22 - 30 mmol/L) 26 Anion Gap (5 - 16) 13 BUN (9 - 20 mg/dL) 7 L Creatinine (0.7 - 1.2 mg/dL) 0.6 L Estimated GFR (>60 ml/min) > 60 BUN/Creatinine Ratio (7 - 25 %) 11.7 Glucose (65 - 99 mg/dL) 248 H Lactic Acid (0.7 - 2.1 mmol/L) 2.2 H Calcium (8.4 - 10.2 mg/dL) 8.6 Total Bilirubin (0.2 - 1.3 mg/dL) 1.5 H Direct Bilirubin (< 0.4 mg/dL) 0.9 H AST (17 - 59 U/L) 51 ALT (21 - 72 U/L) 57 Alkaline Phosphatase (< 127 U/L) 161 H Troponin I (<0.11 ng/ml) < 0.01 Cancelled Total Protein (6.3 - 8.2 g/dL) 7.0 Albumin (3.5 - 5.0 g/dL) 3.3 L Globulin (1.9 - 4.2 gm/dL) 3.7 Albumin/Globulin Ratio (1.1 - 2.2 %) 0.9 L Amylase (30 - 110 U/L) 156 H Lipase (23 - 300 U/L) 544 H Coagulation PT (9.4 - 12.5 SEC) 12.0 INR (0.90 - 1.17) 1.14 APTT (25 - 37 SEC) 32 Hematology CBC w Diff NO MAN DIFF REQ WBC (4.8 - 10.8 /CUMM) 4.8 RBC (4.70 - 6.10 /CUMM) 4.43 L Hgb (14.0 - 18.0 G/DL) 14.2 Hct (42 - 52 %) 40.8 L MCV (80.0 - 94.0 FL) 92.2 MCH (27.0 - 31.0 PG) 32.0 H RDW (11.5 - 14.5 %) 14.4 Plt Count (130 - 400 /CUMM) 70 L MPV (7.4 - 10.4 FL) 8.5 Gran % (42.2 - 75.2 %) 68.0 Lymphocytes % (20.5 - 51.1 %) 21.7 Monocytes % (1.7 - 9.3 %) 8.3 Eosinophils % (0 - 5 %) 1.8 Basophils % (0.0 - 2.0 %) 0.2 Absolute Granulocytes (1.4 - 6.5 /CUMM) 3.2 Absolute Lymphocytes (1.2 - 3.4 /CUMM) 1.0 L Absolute Monocytes (0.10 - 0.60 /CUMM) 0.4 Absolute Eosinophils (0.0 - 0.7 /CUMM) 0.1 Absolute Basophils (0.0 - 0.2 /CUMM) 0 PUBS MCHC (33.0 - 37.0 G/DL) 34.7 Toxicology Serum Alcohol (<10 MG/DL) < 10.0 Acetone Level (NEGATIVE) NEGATIVE Cancelled Imaging/Other Studies: ct scan with IV contrast FINDINGS: LUNG BASES: The visualized lung bases are unremarkable. LIVER, GALLBLADDER, AND BILIARY TREE: There is mild lobulation of the surface of the liver consistent with cirrhosis. No focal liver lesion. No intrahepatic bile duct dilatation. There are numerous small partially calcified gallstones layering dependently in the neck of the gallbladder. No gallbladder wall thickening. No bile duct dilatation. The extrahepatic CBD measures 5 mm and tapers to the ampulla with no calcified stone within the duct. PANCREAS: Unremarkable. SPLEEN: The spleen is enlarged. Measures 15.1 cm superior inferior. ADRENAL GLANDS: Unremarkable. KIDNEYS AND URETERS: The kidneys are normal in size, shape, and attenuation. No hydronephrosis, hydroureter, or calculi seen. No perinephric stranding. The small renal stones noted on the CT scan abdomen pelvis of 08/29/2013 not apparent on this exam which used IV contrast. BLADDER: Unremarkable. GASTROINTESTINAL TRACT: There are scattered diverticula of the colon. No diverticulitis. No acute change of the bowel. No bowel obstruction. No bowel wall thickening or edema. The appendix is normal. The small bowel loops are normal. ABDOMINAL WALL: There is a right-sided spigelian hernia. There is a defect in the right lateral abdominal wall at the level of the iliac crest fat herniating through the defect. The defect measures 3.8 cm transverse axial image 446 (3). The herniated fat pocket measures 10 x 3 x 7 cm. There is a superficial fascial plane containing a herniated fat from the subcutaneous tissue. LYMPH NODES: Normal. VASCULAR: No evidence of portal hypertension. There is a recannulated umbilical vein. Normal enhancement of the portal vein and splenic vein with no thrombosis. PELVIC VISCERA: Prostate measures 4.3 cm transverse. Seminal vesicles unremarkable. OSSEOUS STRUCTURES: Bridging degenerative osteophytes at the lower thoracic vertebrae. Small degenerative spurs of the endplates of lumbar vertebrae. IMPRESSION: 1. Cholelithiasis. No acute change of gallbladder wall. No bile duct dilatation. Normal pancreas. 2. Mild diverticulosis of colon. No acute change of bowel. 3. Changes of cirrhosis of liver with lobular contour of liver and recannulated umbilical vein and splenomegaly from portal hypertension. 4. Fat-containing right-sided spigelian ventral wall hernia US: FINDINGS: PANCREAS: Somewhat diminutive but normal in echotexture, without focal finding. The pancreatic tail is suboptimally seen secondary to overlapping bowel gas. LIVER: Normal. The liver demonstrates normal size, a mildly lobulated contour and echogenicity. No focal lesion or intrahepatic biliary duct dilatation. GALLBLADDER: There is cholelithiasis. The gallbladder is physiologically distended without evidence of polyps, wall thickening or pericholecystic fluid. COMMON BILE DUCT: Normal in caliber measuring 0.4 cm in diameter. RIGHT KIDNEY: Normal. No hydronephrosis. No renal calculi or focal parenchymal lesions. The kidney measures 9.4 cm in maximum dimension. FREE FLUID: None. IMPRESSION: 1. There is cholelithiasis, without cholecystitis or choledocholithiasis. 2. Limited ultrasound evaluation of the pancreas. Assessment/Plan Assessment/Recommendations: Assessment: Mr. Iqbal is a 55 year old male with a history of pancreatitis presumably related to etoh in the past who presents with abdominal pain and vomiting which appears to be secondary to biliary colic. His lipase was only moderately elevated which is a non-specific finding and it wasn't elevated to the level that I would expect it to be if he had pancreatitis (generally in the 1000s). While it is possible he may not elevate his lipase if he has chronic pancreatitis (ie. from etoh) I feel this is less likely as he didn't have any evidence of chronic pancreatitis on his ct scan. Considering he has also been having burning epigastric discomfort it is also possible his symptoms could be from PUD or GERD which could also cause a moderate elevation of his lipase. Of note, while his LFTs are essentially normal his urobilinogin and urine bilirubin are elevated which suggest he may have a cbd obstruction, but current imaging doesn't show any biliary dilatation and I would expect his LFTs to increase as well if there was a CBD stone and his have remained normal. It is possible he may have passed a CBD stone or that he has retained CBD stones that aren't causing an obstruction presently. Recommendations: 1. Follow daily LFTs 2. Defer to surgery for timing of cholecystectomy and would recommend pursuing an intraoperative cholangiogram or alterantively an MRCP (pre or post op) could be pursued to definitively rule out choledocolithiasis considering the urinalysis findings 3. Analgesia as needed, but would avoid nsaids for now 4. PO PPI 5. Will tentatively plan to pursue an outpatient EGD (and colon if he has never had one before) I will continue to follow this patient and make further recommendations based on his clinical course and results of repeat blood work and imaging. Problem List: 1. Pancreatitis 2. Abdominal pain 3. Biliary colic 4. Gallstone Consult Acknowledgment - Thank you for your consult request.
[2016-04-04 14:47] VITALS: BP 142/90
[2016-04-04 21:58] VITALS: BP 132/90
--- NOTE | 2016-04-04 22:11 | PN- General Surgery ---
Subjective Subjective: The patient was seen this morning postoperatively. He reports his pain is under adequate control with some moderate residual right upper quadrant pain. A 0.5 time denied any nausea, chest pain, difficulty breathing. Objective Vital Signs and I&Os Vital Signs Date Time Temp Pulse Resp B/P Pulse O2 O2 Flow FiO2 Ox Delivery Rate 04/048 97.5 90 20 132/90 98 Nasal 2.0L Cannula 04/04 1447 97.7 66 20 142/90 98 Room Air 04/04 0731 97.5 63 20 130/70 97 Room Air 04/03 2336 97.9 62 20 154/84 96 Room Air Intake & Output 04/04 1600 04/04 0800 04/04 0000 04/03 1600 04/03 0800 04/03 0000 Intake Total 1200 1600 1600 1000 Output Total 1195 775 1 Balance 5 825 1600 999 Intake, IV 1200 1600 1600 1000 Intake, Oral 0 Output, Urine 1195 775 1 Patient 190 lb 190 lb Weight Physical Exam: Gen.: Alert and in no obvious distress Skin: Warm and dry without jaundice Abdomen: Softly distended, appropriate incisional tenderness, bowel sounds positive. Port sites were slightly blood-tinged but the dressing was otherwise intact. His CHRIS 1 holding suction with serosanguineous drainage in the bulb. Extremities: Bilateral lower extremities are warm without calf tenderness or significant edema. Assessment/Plan Assessment/Plan Assessment: 55-year-old male status post laparoscopic cholecystectomy. Postoperatively the patient is pressing as expected and his pain is under adequate control. Recommendations: Advance diet as tolerated Follow-up morning laboratory studies along with LFTs Two doses of postoperative antibiotics Continue current pain regiment GI and DVT prophylaxis Keep drain to self suction Continue care per primary team
[2016-04-05 00:22] VITALS: BP 90/60
[2016-04-05 00:38] VITALS: BP 132/60
[2016-04-05 02:20] VITALS: BP 130/80
[2016-04-05 04:10] VITALS: BP 132/90
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
[2016-04-05 08:00] LABS: ABSOLUTE BASOPHIL COUNT 0 /CUMM (0.0-0.2); ABSOLUTE EOSINOPHIL COUNT 0 /CUMM (0.0-0.7); ABSOLUTE GRANULOCYTE CT 7.3 /CUMM (1.4-6.5); ABSOLUTE LYMPH COUNT 0.7 /CUMM (1.2-3.4); ABSOLUTE MONOCYTE COUNT 0.5 /CUMM (0.10-0.60); BASOPHIL % 0.1 % (0.0-2.0); EOSINOPHIL % 0.2 % (0-5); HEMATOCRIT 36.6 % (42-52); MEAN CORPUSCULAR HGB 32.5 PG (27.0-31.0); MEAN CORPUSCULAR VOLUME 92.9 FL (80.0-94.0); MEAN PLATELET VOLUME 8.4 FL (7.4-10.4); PLATELET COUNT 65 /CUMM (130-400); RBC DISTRIBUTION WIDTH 14.3 % (11.5-14.5); RED BLOOD CELL CT 3.94 /CUMM (4.70-6.10)
[2016-04-05 08:24] LABS: PT 13.4 SEC (9.4-12.5)
--- NOTE | 2016-04-05 08:28 | Operative Report ---
Operative/Inv Procedure Report Surgery Date: 04/04/16 Name of Procedure: laparoscopic cholecystectomy Pre-Operative Diagnosis: acute cholecystitis, cholelithiasis Post-Operative Diagnosis: same Estimated Blood Loss: 50ml to 100ml Surgeon/Cyber Instructor: Marcos Ortega PA-C Anesthesia: general endotracheal tube, BRENDEN block IV Fluids: LR Urine Output: not measured Drains: CHRIS x 1 Specimens: gallbladder and stones Complications: none Condition: stable Operative/Procedure Note Note: After informed consent and proper identification the patient was taken the operating room and placed on the operating room table in the supine position abdomen was prepped and draped in normal sterile fashion after the patient received a general endotracheal anesthetic and a Brenden block by anesthesia infraumbilical incision was made with #11 blade through the skin subcutaneous tissue down to the fascia the fascia was elevated between 2-0 Vicryl sutures and opened transversely with electrocautery we placed a blunt port cannula into the abdominal cavity and insufflated with 14 mm CO2 pressure to be noted that the omentum was stuck and surrounding the fundus and infundibulum of the gallbladder there is minimal pericholecystic fluid. There was no ascites but striking appearance to the liver consistent with a macronodular cirrhosis involving the entire liver. We placed additional trochars one 5 mm trocar in the upper midline to the right of the falciform and 25 mm trochars in the right subcostal margin. With blunt and sharp dissection we able to carefully take the omentum off of the fundus of the gallbladder and the infundibulum were careful not to injure the duodenum which was also slightly adherent to the infundibulum of the gallbladder once were able to dissect the infundibulum out and pulled laterally we drain the gallbladder as it was very tense and there were multiple stones within the gallbladder the gallbladder was somewhat friable we able to surround the cystic duct and cystic artery in place 5 mm clips both proximally and distally on the duct and artery and divided them with EndoShears scissor taking the gallbladder off of the back wall the liver was severely inflamed we decided to leave some of the back wall of the gallbladder on the liver so that we would not get into bleeding from the liver bed we therefore had to remove the gallbladder in pieces and placed stones in an Endo catch bag with the gallbladder the end of the case before pulling it out through the infraumbilical port site. We placed a sponge in the abdominal cavity for hemostasis as well as using a suction salesperson driver at the end of the case removed the sponge and we placed 2 pieces of Surgicel in the liver bed. We placed a 10 flat CHRIS drain into the abdominal cavity and pulled the tubing out through the 5 mm right subcostal margin trocar site inserted to the skin with a 3-0 nylon suture. All instruments were removed sponge and instrument counts were correct there is no active bleeding at the end of the case removed all trochars closed skin incisions with 4-0 Monocryl subcuticular stitches. Dry sterile dressings were placed. Patient was extubated and taken the recovery room in stable condition end of dictation thank you Findings: severely cirrhotic appearing macronodular liver Discharge Disposition: PACU
[2016-04-05 08:35] LABS: GRANULOCYTE % 85.6 % (42.2-75.2)
[2016-04-05 09:19] LABS: WHITE BLOOD CELL COUNT 8.5 /CUMM (4.8-10.8)
--- NOTE | 2016-04-05 09:20 | PN- General Surgery ---
Subjective Subjective: Reports continued abdominal pain, bloating, and some nausea. Eating breakfast this morning. Objective Vital Signs and I&Os Vital Signs Date Time Temp Pulse Resp B/P Pulse O2 O2 Flow FiO2 Ox Delivery Rate 04/05 0832 132/90 04/05 0410 97.5 103 20 132/90 98 Nasal Cannula 04/05 0220 97.5 92 20 130/80 98 Nasal Cannula 04/05 0038 103 132/60 97 Nasal 2.0L Cannula 04/05 0022 97.5 102 20 90/60 98 Nasal 1.0L Cannula 04/05 0000 97 Nasal 2.0L Cannula 04/04 2158 97.5 90 20 132/90 98 Nasal 2.0L Cannula 04/04 1447 97.7 66 20 142/90 98 Room Air Intake & Output 04/05 1600 04/05 0800 04/05 0000 04/04 1600 04/04 0804/04 0000 Intake Total 209 445 4948 1600 1600 Output Total 737 96 4392 775 Balance 390 225 5 825 1600 Intake, IV 113 618 9399 1600 1600 Intake, Oral 200 100 0 Output, 60 25 Drainage Output, Urine 400 1195 775 Patient 190 lb Weight Physical Exam: General - alert & oriented. uncomfortable. no acute distress. Lungs - clear Cardiac - s1s2 Abdomen - soft. dressings c/d/i. CHRIS drain with serosang drainage - no bile appreciated. remains tender in right upper quadrant and epigastric region. Extremities - warm bilaterally. no c/c/e. calves soft and nontender b/l. Assessment/Plan Assessment/Plan 55-year-old male POD#1 s/p lap alisia, worsened bilirubinemia this morning with persistent pain make npo mrcp ordered for this afternoon pain control as ordered notify with labs and mrcp may need ercp if evidence of cbd stone hold lovenox for now monitor CHRIS drain discussed with Continue care per primary team
--- NOTE | 2016-04-05 13:07 | PN- Gastroenterology ---
Assessment/Plan Assessment/Recommendations: Assessment: Mr. Iqbal is a 55 year old male with a history of pancreatitis presumably related to etoh in the past who presented with abdominal pain which I feel is most likely secondary to biliary colic based on his history and I don't feel he had pancreatitis on this admission. He is s/p CCY, but continues to complain of pain. He did have a very minimal increase in his bilirubin since admission so I agree it would be reasonable to obtain an MRCP to rule out choledocholithiasis. He was also noted to have a cirrhotic liver at the time of the surgery which I suspect is secondary to alcohol and can likely be evaluated and worked up further as an outpatient. Recommendations: 1. Follow daily LFTs 2. Follow-up MRCP to rule out choledocholithiasis 3. Analgesia as needed, but would avoid nsaids for now 4. PO PPI and antireflux measures should be instituted 5. Keep nothing by mouth for now, but if the MRCP is negative it may be reasonable to advance to liquid diet later today or in the a.m. I will continue to follow this patient and make further recommendations based on his clinical course and results of repeat blood work and imaging. Problem List: 1. Biliary colic 2. Abdominal pain 3. Gallstone Subjective Subjective: Pt continues to complain of RUQ pain. He is s/p uneventful CCY yesterday. No fevers overnight. He remains NPO. No vomiting. Objective Vital Signs and I&Os Vital Signs Date Time Temp Pulse Resp B/P Pulse O2 O2 Flow FiO2 Ox Delivery Rate 04/05 0832 132/90 04/05 0410 97.5 103 20 132/90 98 Nasal Cannula 04/05 0220 97.5 92 20 130/80 98 Nasal Cannula 04/05 0038 103 132/60 97 Nasal 2.0L Cannula 04/05 0022 97.5 102 20 90/60 98 Nasal 1.0L Cannula 04/05 0000 97 Nasal 2.0L Cannula 04/04 2158 97.5 90 20 132/90 98 Nasal 2.0L Cannula 04/04 1447 97.7 66 20 142/90 98 Room Air Intake & Output 04/05 1600 04/05 0400 04/04 1600 04/04 0400 04/03 1600 04/03 0400 Intake Total 217 637 6404 1600 1000 Output Total 561 53 2776 1 Balance 290 976 873 9159 999 Intake, IV 050 126 9238 1600 1000 Intake, Oral 200 100 0 Output, 60 25 Drainage Output, Urine 500 1969 03 Patient 190 lb 190 lb Weight Physical Exam General Appearance: well developed/nourished, alert, awake, mild distress Head: atraumatic, normal appearance Ears, Nose, Throat: normal pharynx, normal ENT inspection Neck: normal inspection, supple Respiratory: normal breath sounds Cardiovascular: regular rate/rhythm Abdomen: normal bowel sounds, soft, tenderness Back: normal inspection Extremities: normal inspection, no edema Current Medications: Current Medications Sig/Danuta Start time Last Medication Dose Route Stop Time Status Admin Acetaminophen 1,000 MG .STK-MED ONE 04/04 1808 DC IV 04/04 180 Acetaminophen 650 MG Q4P PRN 04/03 2100 AC PO Ampicillin Sodium/ 3,000 MG Q6 04/04 2359 DC 04/05 Sulbactam Sodium IV 04/05 0629 0622 Sodium Chloride 100 ML Dextrose/Lactated 1,000 ML Q8H 04/04 1030 DC 04/04 Ringer's IV 1052 Dextrose/Sodium 1,000 ML Q13H 04/05 1030 AC Chloride IV Dextrose/Sodium 1,000 ML Q13H 04/04 1430 DC Chloride IV Docusate Sodium 100 MG BID 04/03 2200 AC 04/05 PO 0831 Enoxaparin Sodium 40 MG DAILY 04/03 1959 DC 04/05 SC 0831 Fentanyl Citrate 250 MCG .STK-MED ONE 04/04 1809 DC IM 04/04 1810 Gabapentin 100 MG Q8 04/04 1400 AC 04/05 PO 0622 Hydromorphone HCl 1 MG Q4P PRN 04/05 0815 AC 04/05 IV 1213 Hydromorphone HCl 2 MG Q4P PRN 04/04 1400 DC IV Hydromorphone HCl 0.6 MG ONCE ONE 04/04 1330 CAN IV 04/04 1331 Hydromorphone HCl 1 MG Q4P PRN 04/04 1030 DC 04/04 IV 1051 Hydroxyzine HCl 50 MG DAILY 04/04 1000 AC 04/05 PO 0831 Insulin Aspart 0 TIDAC 04/05 1200 AC 04/05 SC 0832 Insulin Aspart 4 UNITS .STK-MED ONE 04/05 0846 DC SC 04/05 0847 Insulin Aspart 0 TIDAC 04/04 0800 DC SC Insulin Detemir 25 UNITS BID 04/04 2200 AC 04/05 SC 0831 Insulin Detemir 20 UNITS BID 04/04 1020 DC SC Insulin Human Regular 0 TIDAC/HS 04/04 2100 DC SC Insulin Human Regular 0 Q6 04/04 1800 DC SC Ketorolac 30 MG ONCE ONE 04/05 0430 DC 04/05 Tromethamine IV 04/05 0431 0443 Ketorolac 30 MG ONCE ONE 04/04 1330 DC 04/04 Tromethamine IV 04/04 1331 1336 Lactated Ringer's 1,000 ML Q13H 04/05 0830 DC 04/05 IV 0831 Midazolam HCl 2 MG .STK-MED ONE 04/04 1809 DC IM 04/04 1810 Morphine Sulfate 4 MG Q4P PRN 04/04 1430 DC 04/04 IV 2212 Omeprazole 20 MG DAILY AC 04/04 0700 AC 04/05 PO 0622 Ondansetron HCl 4 MG .STK-MED ONE 04/04 1809 DC IM 04/04 1810 Ondansetron HCl 4 MG Q6P PRN 04/03 2100 AC IV Oxycodone/ 1 TAB .STK-MED ONE 04/05 0846 DC Acetaminophen PO 04/05 0847 Oxycodone/ 2 TAB Q6-PRN PRN 04/05 0500 AC 04/05 Acetaminophen PO 0622 Oxycodone/ 1 TAB ONCE ONE 04/05 0130 DC 04/05 Acetaminophen PO 04/05 0131 0135 Oxycodone/ 2 TAB Q6 PRN 04/05 0129 DC Acetaminophen PO Oxycodone/ 1 TAB Q6P PRN 04/03 2000 DC 04/04 Acetaminophen PO 2355 Senna/Docusate Sodium 1 TAB AT BEDTIME 04/03 2200 AC 04/04 PO 2219 Tamsulosin HCl 0.4 MG DAILY 04/04 1000 AC 04/05 PO 0832 Results Pertinent Lab Results: Laboratory Tests 04/05 04/04 0600 0650 Chemistry Sodium (137 - 145 mmol/L) 135 L Potassium (3.5 - 5.1 mmol/L) 4.0 Chloride (98 - 107 mmol/L) 97 L Carbon Dioxide (22 - 30 mmol/L) 27 Anion Gap (5 - 16) 11 BUN (9 - 20 mg/dL) 5 L Creatinine (0.7 - 1.2 mg/dL) 0.7 Estimated GFR (>60 ml/min) > 60 BUN/Creatinine Ratio (7 - 25 %) 7.1 Total Bilirubin (0.2 - 1.3 mg/dL) 1.8 H Direct Bilirubin (< 0.4 mg/dL) 1.0 H AST (17 - 59 U/L) 50 ALT (21 - 72 U/L) 51 Alkaline Phosphatase (< 127 U/L) 75 Total Protein (6.3 - 8.2 g/dL) 5.5 L Albumin (3.5 - 5.0 g/dL) 2.6 L RBC Folate Pending Coagulation PT (9.4 - 12.5 SEC) 13.4 H INR (0.90 - 1.17) 1.28 H Hematology CBC w Diff NO MAN DIFF REQ WBC (4.8 - 10.8 /CUMM) 8.5 RBC (4.70 - 6.10 /CUMM) 3.94 L Hgb (14.0 - 18.0 G/DL) 12.8 L Hct (42 - 52 %) 36.6 L MCV (80.0 - 94.0 FL) 92.9 MCH (27.0 - 31.0 PG) 32.5 H RDW (11.5 - 14.5 %) 14.3 Plt Count (130 - 400 /CUMM) 65 L MPV (7.4 - 10.4 FL) 8.4 Gran % (42.2 - 75.2 %) 85.6 H Lymphocytes % (20.5 - 51.1 %) 7.8 L Monocytes % (1.7 - 9.3 %) 6.3 Eosinophils % (0 - 5 %) 0.2 Basophils % (0.0 - 2.0 %) 0.1 Absolute Granulocytes (1.4 - 6.5 /CUMM) 7.3 H Absolute Lymphocytes (1.2 - 3.4 /CUMM) 0.7 L Absolute Monocytes (0.10 - 0.60 /CUMM) 0.5 Absolute Eosinophils (0.0 - 0.7 /CUMM) 0 Absolute Basophils (0.0 - 0.2 /CUMM) 0 PUBS MCHC (33.0 - 37.0 G/DL) 35.0 04/04 04/04 04/03 0650 0600 1520 Chemistry Sodium (137 - 145 mmol/L) 138 Potassium (3.5 - 5.1 mmol/L) 3.9 Chloride (98 - 107 mmol/L) 99 Carbon Dioxide (22 - 30 mmol/L) 30 Anion Gap (5 - 16) 9 BUN (9 - 20 mg/dL) 6 L Creatinine (0.7 - 1.2 mg/dL) 0.7 Estimated GFR (>60 ml/min) > 60 BUN/Creatinine Ratio (7 - 25 %) 8.6 Hemoglobin A1c (<5.7) 7.3 H Lactic Acid (0.7 - 2.1 mmol/L) 1.6 Total Bilirubin (0.2 - 1.3 mg/dL) 1.3 Direct Bilirubin (< 0.4 mg/dL) 0.7 H AST (17 - 59 U/L) 44 ALT (21 - 72 U/L) 47 Alkaline Phosphatase (< 127 U/L) 104 Total Protein (6.3 - 8.2 g/dL) 5.9 L Albumin (3.5 - 5.0 g/dL) 2.7 L Amylase (30 - 110 U/L) 130 H Lipase (23 - 300 U/L) 337 H Vitamin B12 (239 - 931 pg/mL) 877 25-OH Vitamin D Total (30 - 100 ng/ml) 12.7 L Hematology CBC w Diff NO MAN DIFF REQ WBC (4.8 - 10.8 /CUMM) 4.7 L RBC (4.70 - 6.10 /CUMM) 3.82 L Hgb (14.0 - 18.0 G/DL) 12.3 L Hct (42 - 52 %) 35.6 L MCV (80.0 - 94.0 FL) 93.2 MCH (27.0 - 31.0 PG) 32.1 H RDW (11.5 - 14.5 %) 14.3 Plt Count (130 - 400 /CUMM) 66 L MPV (7.4 - 10.4 FL) 8.0 Gran % (42.2 - 75.2 %) 54.0 Lymphocytes % (20.5 - 51.1 %) 31.7 Monocytes % (1.7 - 9.3 %) 9.5 H Eosinophils % (0 - 5 %) 4.3 Basophils % (0.0 - 2.0 %) 0.5 Absolute Granulocytes (1.4 - 6.5 /CUMM) 2.5 Absolute Lymphocytes (1.2 - 3.4 /CUMM) 1.5 Absolute Monocytes (0.10 - 0.60 /CUMM) 0.4 Absolute Eosinophils (0.0 - 0.7 /CUMM) 0.2 Absolute Basophils (0.0 - 0.2 /CUMM) 0 PUBS MCHC (33.0 - 37.0 G/DL) 34.5 04/03 04/03 1335 1317 Chemistry Sodium (137 - 145 mmol/L) 139 Potassium (3.5 - 5.1 mmol/L) 3.8 Chloride (98 - 107 mmol/L) 101 Carbon Dioxide (22 - 30 mmol/L) 26 Anion Gap (5 - 16) 13 BUN (9 - 20 mg/dL) 7 L Creatinine (0.7 - 1.2 mg/dL) 0.6 L Estimated GFR (>60 ml/min) > 60 BUN/Creatinine Ratio (7 - 25 %) 11.7 Glucose (65 - 99 mg/dL) 248 H Lactic Acid (0.7 - 2.1 mmol/L) 2.2 H Calcium (8.4 - 10.2 mg/dL) 8.6 Total Bilirubin (0.2 - 1.3 mg/dL) 1.5 H Direct Bilirubin (< 0.4 mg/dL) 0.9 H AST (17 - 59 U/L) 51 ALT (21 - 72 U/L) 57 Alkaline Phosphatase (< 127 U/L) 161 H Troponin I (<0.11 ng/ml) < 0.01 Total Protein (6.3 - 8.2 g/dL) 7.0 Albumin (3.5 - 5.0 g/dL) 3.3 L Globulin (1.9 - 4.2 gm/dL) 3.7 Albumin/Globulin Ratio (1.1 - 2.2 %) 0.9 L Amylase (30 - 110 U/L) 156 H Lipase (23 - 300 U/L) 544 H Coagulation PT (9.4 - 12.5 SEC) 12.0 INR (0.90 - 1.17) 1.14 APTT (25 - 37 SEC) 32 Hematology CBC w Diff NO MAN DIFF REQ WBC (4.8 - 10.8 /CUMM) 4.8 RBC (4.70 - 6.10 /CUMM) 4.43 L Hgb (14.0 - 18.0 G/DL) 14.2 Hct (42 - 52 %) 40.8 L MCV (80.0 - 94.0 FL) 92.2 MCH (27.0 - 31.0 PG) 32.0 H RDW (11.5 - 14.5 %) 14.4 Plt Count (130 - 400 /CUMM) 70 L MPV (7.4 - 10.4 FL) 8.5 Gran % (42.2 - 75.2 %) 68.0 Lymphocytes % (20.5 - 51.1 %) 21.7 Monocytes % (1.7 - 9.3 %) 8.3 Eosinophils % (0 - 5 %) 1.8 Basophils % (0.0 - 2.0 %) 0.2 Absolute Granulocytes (1.4 - 6.5 /CUMM) 3.2 Absolute Lymphocytes (1.2 - 3.4 /CUMM) 1.0 L Absolute Monocytes (0.10 - 0.60 /CUMM) 0.4 Absolute Eosinophils (0.0 - 0.7 /CUMM) 0.1 Absolute Basophils (0.0 - 0.2 /CUMM) 0 PUBS MCHC (33.0 - 37.0 G/DL) 34.7 Toxicology Serum Alcohol (<10 MG/DL) < 10.0 Acetone Level (NEGATIVE) NEGATIVE Urines Urinalysis LIGHT H Urine Color (YEL,AMB,STR) MEHDI Urine Clarity (CLEAR) CLEAR Urine pH (5.0 - 8.0) 6.5 Ur Specific [place] (1.001 - 1.035) 1.015 Urine Protein (NEG,<30 MG/DL) TRACE H Urine Ketones (NEG) NEG Urine Nitrite (NEG) NEG Urine Bilirubin (NEG) POS@ICTO H Urine Urobilinogen (0.1 - 1.0 EU/dl) 4.0 H Ur Leukocyte Esterase (NEG) NEG Ur Microscopic SEDIMENT EXAMINED Urine RBC (0 - 5 /HPF) 3-5 Urine WBC (0 - 2 /HPF) 1-3 H Ur Epithelial Cells (NONE,FEW) FEW Urine Mucus (FEW,NONE) FEW Urine Hemoglobin (NEG) TRACE-INTACT H Urine Glucose (N MG/DL) >=1000 H 04/03 04/03 1305 1304 Chemistry Troponin I Cancelled Toxicology Acetone Level Cancelled
--- NOTE | 2016-04-05 14:17 | PN- Student ---
Subjective Subjective: 55 yo M POD 1 s/p cholecystectomy w/ PMHx of recurrent pancreatitis, T2DM on insulin, gall stones and cholecystitis who was admitted on 04/03 w/ multiple gallstones under suspicion of acute pancreatitis. Today, pt is lying in bed in some discomfort, especially w/ movement and is cooperative w/ interview. No acute events overnight. Pt was unable to sleep because of severe pain throughout the night following surgery, despite recieving dilaudid 1mg IV q4 hrs and percocet 2 tab PO q6 hrs. Pt also recieved one dose of 30mg IV Toradol against rec from GI consult. He was able to eat breakfast this morning w/ no N/V. He reports no flatus or BM. Objective Objective: Vital Signs Date Time Temp Pulse Resp B/P Pulse O2 O2 Flow FiO2 Ox Delivery Rate 04/05 0832 132/90 04/05 0410 97.5 103 20 132/90 98 Nasal Cannula 04/05 0220 97.5 92 20 130/80 98 Nasal Cannula 04/05 0038 103 132/60 97 Nasal 2.0L Cannula 04/05 0022 97.5 102 20 90/60 98 Nasal 1.0L Cannula 04/05 0000 97 Nasal 2.0L Cannula 04/04 2158 97.5 90 20 132/90 98 Nasal 2.0L Cannula 04/04 1447 97.7 66 20 142/90 98 Room Air Intake & Output 04/05 1600 04/05 0800 04/05 0000 Intake Total 850 250 Output Total 175 460 25 Balance -175 390 225 Intake, IV 650 150 Intake, Oral 200 100 Output, 75 60 25 Drainage Output, Urine 100 400 Physical Exam: Gen - Cooperative. Uncomfortable w/ movement but NAD. Cardiac - RRR, S1S2, no m/r/g. Lungs - CTA BL Abd - Soft, mildly distended. Severe tenderness to palpation in RUQ. Nontender elsewhere. Laboratory Tests 04/05/16 0600: Anion Gap 11, Estimated GFR > 60, BUN/Creatinine Ratio 7.1, Total Bilirubin 1.8 H, Direct Bilirubin 1.0 H, AST 50, ALT 51, Alkaline Phosphatase 75, Total Protein 5.5 L, Albumin 2.6 L, PT 13.4 H, INR 1.28 H, CBC w Diff NO MAN DIFF REQ, RBC 3.94 L, MCV 92.9, MCH 32.5 H, RDW 14.3, MPV 8.4, Gran % 85.6 H, Lymphocytes % 7.8 L, Monocytes % 6.3, Eosinophils % 0.2, Basophils % 0.1, Absolute Granulocytes 7.3 H, Absolute Lymphocytes 0.7 L, Absolute Monocytes 0.5, Absolute Eosinophils 0, Absolute Basophils 0, PUBS MCHC 35.0 04/04/16 0650: RBC Folate Pending 04/04/16 0650: Anion Gap 9, Estimated GFR > 60, BUN/Creatinine Ratio 8.6, Total Bilirubin 1.3, Direct Bilirubin 0.7 H, AST 44, ALT 47, Alkaline Phosphatase 104, Total Protein 5.9 L, Albumin 2.7 L, Amylase 130 H, Lipase 337 H, Vitamin B12 877, 25-OH Vitamin D Total 12.7 L, CBC w Diff NO MAN DIFF REQ, RBC 3.82 L, MCV 93.2, MCH 32.1 H, RDW 14.3, MPV 8.0, Gran % 54.0, Lymphocytes % 31.7, Monocytes % 9.5 H, Eosinophils % 4.3, Basophils % 0.5, Absolute Granulocytes 2.5, Absolute Lymphocytes 1.5, Absolute Monocytes 0.4, Absolute Eosinophils 0.2, Absolute Basophils 0, PUBS MCHC 34.5 04/04/16 0600: Hemoglobin A1c 7.3 H 04/03/16 1520: Lactic Acid 1.6 Current Medications Sig/Danuta Start time Last Medication Dose Route Stop Time Status Admin Acetaminophen 1,000 MG .ST-MED ONE 04/04 1808 DC IV 04/04 1809 Acetaminophen 650 MG Q4P PRN 04/03 2100 AC PO Ampicillin Sodium/ 3,000 MG Q6 04/04 2359 DC 04/05 Sulbactam Sodium IV 04/05 0629 0622 Sodium Chloride 100 ML Dextrose/Lactated 1,000 ML Q8H 04/04 1030 DC 04/04 Ringer's IV 1052 Dextrose/Sodium 1,000 ML Q13H 04/05 1030 AC Chloride IV Dextrose/Sodium 1,000 ML Q13H 04/04 1430 DC Chloride IV Docusate Sodium 100 MG BID 04/03 2200 AC 04/05 PO 0831 Enoxaparin Sodium 40 MG DAILY 04/03 1959 DC 04/05 SC 0831 Fentanyl Citrate 250 MCG .STK-MED ONE 04/04 1809 DC IM 04/04 1810 Gabapentin 100 MG Q8 04/04 1400 AC 04/05 PO 0622 Hydromorphone HCl 1 MG Q4P PRN 04/05 0815 AC 04/05 IV 1213 Hydromorphone HCl 2 MG Q4P PRN 04/04 1400 DC IV Hydroxyzine HCl 50 MG DAILY 04/04 1000 AC 04/05 PO 0831 Insulin Aspart 0 TIDAC 04/05 1200 AC 04/05 SC 0832 Insulin Aspart 4 UNITS .STK-MED ONE 04/05 0846 DC SC 04/05 0847 Insulin Aspart 0 TIDAC 04/04 0800 DC SC Insulin Detemir 25 UNITS BID 04/04 2200 AC 04/05 SC 0831 Insulin Detemir 20 UNITS BID 04/04 1020 DC SC Insulin Human Regular 0 TIDAC/HS 04/04 2100 DC SC Insulin Human Regular 0 Q6 04/04 1800 DC SC Ketorolac 30 MG ONCE ONE 04/05 0430 DC 04/05 Tromethamine IV 04/05 0431 0443 Lactated Ringer's 1,000 ML Q13H 04/05 0830 DC 04/05 IV 0831 Midazolam HCl 2 MG .STK-MED ONE 04/04 1809 DC IM 04/04 1810 Morphine Sulfate 4 MG Q4P PRN 04/04 1430 DC 04/04 IV 2212 Omeprazole 20 MG DAILY AC 04/04 0700 AC 04/05 PO 0622 Ondansetron HCl 4 MG .STK-MED ONE 04/04 1809 DC IM 04/04 1810 Ondansetron HCl 4 MG Q6P PRN 04/03 2100 AC IV Oxycodone/ 1 TAB .STK-MED ONE 04/05 0846 DC Acetaminophen PO 04/05 0847 Oxycodone/ 2 TAB Q6-PRN PRN 04/05 0500 AC 04/05 Acetaminophen PO 0622 Oxycodone/ 1 TAB ONCE ONE 04/05 0130 DC 04/05 Acetaminophen PO 04/05 0131 0135 Oxycodone/ 2 TAB Q6 PRN 04/05 0129 DC Acetaminophen PO Oxycodone/ 1 TAB Q6P PRN 04/03 2000 DC 04/04 Acetaminophen PO 2355 Patient Medication 1 ED .STK-MED ONE 04/05 1342 DC Teaching ED 04/05 1343 Senna/Docusate Sodium 1 TAB AT BEDTIME 04/03 2200 AC 04/04 PO 2219 Tamsulosin HCl 0.4 MG DAILY 04/04 1000 AC 04/05 PO 0832 Assessment/Plan Assessment: This is a 55 yo M POD 1 s/p cholecystectomy w/ PMHx of recurrent pancreatitis, T2DM on insulin, gallstones and cholecystitis w/ 40 pack yr smoking hx and former heavy alcohol use w/ no known hx of liver disease. His active problems include (1) Acute pancreatitis (2) Pain (3) T2DM (4) Recurrent acute LE weakness. Plan: 1) Acute pancreatitis -Surgical consult - will need MRCP to acess for choledocholithiasis, potential ERCP -Pt put back on NPO. Procedure must be scheduled later b/c he had breakfast -Originally switched from D5NS to LRs, but now changed back to D5NS 75 mL/hr for IV hydration -GI consult -Zofran PRN for nausea -Bowel regimen on board 2) Pain -Increase dilaudid 1mg to q3 hrs from q6 hrs 3) T2DM -Levemir 32 units while he remains NPO 4) Recurrent acute LE weakness -Recieving gabapentin 100 mg q8 hrs 5) GERD -Omeprazole PO QD 6) BPH -Tamulosin 0.4mg PO QD
[2016-04-05 14:46] VITALS: BP 106/70
--- NOTE | 2016-04-05 18:07 | MRI REPORT ---
EXAMINATION: MR ABDOMEN WITHOUT CONTRAST CLINICAL INFORMATION: Abdominal pain, nausea, bloating and bilirubin elevation. Evaluate for common duct stone. Cholecystectomy performed yesterday. COMPARISON: CT of abdomen and pelvis, and abdomen ultrasound, 04/03/2015. TECHNIQUE: Noncontrast imaging evaluation of the abdomen was performed using standard ectatic resonance cholangiopancreatography protocol on the 1.5 Mery magnet. FINDINGS: Lung bases: There is mild atelectasis in dependent aspect of each lower lobe. Trace right pleural effusion. Hepatobiliary structures: The liver has cirrhotic morphology with nodular surface contour, and the umbilical vein is recanalized. No suspicious hepatic lesion observed on this noncontrast exam. Gallbladder is surgically absent. Common bile duct is normal and measures up to 0.6 cm diameter. There is no evidence of common duct stricture or choledocholithiasis. Pancreas: Pancreatic duct is normal in caliber and there is no pancreatic divisum or pancreatic parenchymal edema. There mild edema in the peripancreatic region and right upper quadrant. This is compatible with expected postoperative changes from the recent cholecystectomy. Spleen: 14 cm craniocaudal dimension. No focal splenic lesion. Adrenal glands: Unremarkable. Kidneys: 1.2 cm simple cortical cyst at the right upper pole. There is a 0.8 cm simple cortical cyst at the left upper pole and 0.4 cm cyst at the left lower pole. No hydronephrosis. Lymphovascular structures: Abdominal aorta is normal in caliber. No pathologic sized periportal, mesenteric or retroperitoneal lymph nodes. Gastrointestinal tract, peritoneal cavity and abdominal wall: The visualized loops of bowel are normal in size. A small volume of perihepatic ascitic fluid is seen within the right upper quadrant. Small amount of fluid is seen within and extending inferior to the gallbladder fossa, but there is no evidence of an organized fluid collection. Again, this is compatible with expected postoperative change. There is mild edema within subcutaneous tissues of the abdominal wall/flanks. Osseous structures: Unremarkable. No suspicious bone lesions. IMPRESSION: 1. No evidence of choledocholithiasis in this patient who is status post cholecystectomy. The common bile duct is normal and measures 0.6 cm diameter. No intrahepatic bile duct dilatation. 2. Cirrhotic liver, recanalized umbilical vein and splenomegaly. 3. Small volume of ascitic fluid within the right upper quadrant. Also, there is tissue edema in the retroperitoneum, right upper quadrant and abdominal wall in this postoperative patient. There is no evidence of an organized fluid collection in the gallbladder fossa.
[2016-04-05 22:12] VITALS: BP 118/58
--- NOTE | 2016-04-05 23:42 | RADIOLOGY REPORT ---
EXAMINATION: XR PORTABLE CHEST CLINICAL INFORMATION: Chest pain. New Oxygen requirement. COMPARISON: None. TECHNIQUE: Portable view of the chest was obtained. 11:28 PM FINDINGS: There is apical lordotic. Lung volume is low with elevation of both diaphragms. No focal consolidation. No pulmonary vascular congestion or pleural effusion. Orthopedic plate and screws in the left humerus. Deformity of the right humeral neck which could be acute or chronic fracture. IMPRESSION: No acute abnormality. Low inspiratory effort. Acute versus chronic fracture of the right humerus.
[2016-04-06 06:00] VITALS: BP 142/88
[2016-04-06 07:53] LABS: ABSOLUTE BASOPHIL COUNT 0 /CUMM (0.0-0.2); ABSOLUTE EOSINOPHIL COUNT 0.1 /CUMM (0.0-0.7); ABSOLUTE LYMPH COUNT 1.1 /CUMM (1.2-3.4); ABSOLUTE MONOCYTE COUNT 0.8 /CUMM (0.10-0.60); BASOPHIL % 0.3 % (0.0-2.0); EOSINOPHIL % 0.8 % (0-5); GRANULOCYTE % 80.2 % (42.2-75.2); HEMATOCRIT 36.4 % (42-52); MEAN CORPUSCULAR HGB 32.4 PG (27.0-31.0); MEAN CORPUSCULAR HGB CONC 34.5 G/DL (33.0-37.0); MEAN CORPUSCULAR VOLUME 93.8 FL (80.0-94.0); PLATELET COUNT 52 /CUMM (130-400); RBC DISTRIBUTION WIDTH 14.7 % (11.5-14.5); RED BLOOD CELL CT 3.88 /CUMM (4.70-6.10)
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
--- NOTE | 2016-04-06 10:43 | PN- General Surgery ---
Subjective Subjective: POD #2 s/p lap alisia, CHRIS placement x1. Uncomfortable this morning- complaining of abdominal pain all over. No complaints of CP/SOB, F/C, N/V. Yet to ambulate today. Objective Vital Signs and I&Os Vital Signs Date Time Temp Pulse Resp B/P Pulse O2 O2 Flow FiO2 Ox Delivery Rate 04/06 1032 82 138/80 04/06 0600 97.8 75 18 142/88 96 Nasal 2.0L Cannula 04/06 0204 98.5 76 18 99 Nasal 2.0L Cannula 04/06 0000 93 Nasal 2.0L Cannula 04/05 2216 92 Nasal 2.0L Cannula 04/05 2211 99.6 87 18 118/58 88 Room Air 04/05 1446 97.9 97 18 106/70 93 Room Air Intake & Output 04/06 1600 04/06 0800 04/06 0000 04/05 1600 04/05 0804/05 0000 Intake Total 960 50 600 850 250 Output Total 200 695 540 550 460 25 Balance -200 265 -490 50 390 225 Intake, IV 600 600 650 150 Intake, Oral 360 50 200 100 Output, 20 75 60 25 Drainage Output, Other 40 Output, Urine 200 675 500 475 400 Patient 190 lb Weight Physical Exam: Gen: AAOx3 in NAD Cor: S1+S2+ Lungs: CTA riley Abd: soft, tender over epigastric area, RUQ and umbilical area. Incisional dressings C/D/I. CHRIS holding suction, serosanguinous drainage (135ml/24 hours noted). No bilious content noted. Ext: no edema or calf tenderness to riley lower extremities. Current Medications: Current Medications Sig/Danuta Start time Last Medication Dose Route Stop Time Status Admin Acetaminophen 650 MG Q4P PRN 04/03 2100 AC PO Dextrose/Sodium 1,000 ML Q13H 04/05 1030 AC 04/06 Chloride IV 0842 Docusate Sodium 100 MG BID 04/03 2200 AC 04/06 PO 1032 Gabapentin 100 MG Q8 04/04 1400 AC 04/06 PO 0517 Hydromorphone HCl 1 MG Q4P PRN 04/05 0815 AC 04/05 IV 1626 Hydroxyzine HCl 50 MG DAILY 04/04 1000 AC 04/06 PO 1032 Insulin Aspart 0 TIDAC 04/06 0800 DC SC Insulin Aspart 0 TIDAC 04/05 1200 DC 04/05 NC 0832 Insulin Detemir 12 UNITS BID 04/06 1000 AC 04/06 SC 1034 Insulin Detemir 25 UNITS BID 04/04 2200 DC 04/05 SC 2229 Insulin Human Regular 0 Q6 04/06 1200 AC SC Insulin Human Regular 0 Q6 04/05 1800 DC 04/05 SC 2006 Melatonin 3 MG ONCE ONE 04/05 2345 DC 04/05 PO 04/05 2346 2337 Morphine Sulfate 2 MG ONCE ONE 04/05 2245 DC 04/05 IV 04/05 2246 2316 Omeprazole 20 MG DAILY AC 04/04 0700 AC 04/06 PO 0517 Ondansetron HCl 4 MG Q6P PRN 04/03 2100 AC IV Oxycodone/ 2 TAB Q6-PRN PRN 04/05 0500 AC 04/06 Acetaminophen PO 1033 Patient Medication 1 ED .STK-MED ONE 04/05 1342 [place] Teaching ED 04/05 1343 Senna/Docusate Sodium 1 TAB AT BEDTIME 04/03 2200 AC 04/05 PO 2220 Tamsulosin HCl 0.4 MG DAILY 04/04 1000 AC 04/06 PO 1032 Results Last 48 Hours of Labs: Laboratory Tests 04/06 04/05 0630 2310 Chemistry Sodium (137 - 145 mmol/L) 138 Potassium (3.5 - 5.1 mmol/L) 4.0 Chloride (98 - 107 mmol/L) 99 Carbon Dioxide (22 - 30 mmol/L) 30 Anion Gap (5 - 16) 8 BUN (9 - 20 mg/dL) 6 L Creatinine (0.7 - 1.2 mg/dL) 0.7 Estimated GFR (>60 ml/min) > 60 BUN/Creatinine Ratio (7 - 25 %) 8.6 Total Bilirubin (0.2 - 1.3 mg/dL) 2.1 H Direct Bilirubin (< 0.4 mg/dL) 1.3 H AST (17 - 59 U/L) 50 ALT (21 - 72 U/L) 47 Alkaline Phosphatase (< 127 U/L) 72 Troponin I (<0.11 ng/ml) < 0.01 Total Protein (6.3 - 8.2 g/dL) 5.5 L Albumin (3.5 - 5.0 g/dL) 2.5 L Hematology CBC w Diff NO MAN DIFF REQ WBC (4.8 - 10.8 /CUMM) 10.0 RBC (4.70 - 6.10 /CUMM) 3.88 L Hgb (14.0 - 18.0 G/DL) 12.6 L Hct (42 - 52 %) 36.4 L MCV (80.0 - 94.0 FL) 93.8 MCH (27.0 - 31.0 PG) 32.4 H RDW (11.5 - 14.5 %) 14.7 H Plt Count (130 - 400 /CUMM) 52 L MPV (7.4 - 10.4 FL) 9.0 Gran % (42.2 - 75.2 %) 80.2 H Lymphocytes % (20.5 - 51.1 %) 11.0 L Monocytes % (1.7 - 9.3 %) 7.7 Eosinophils % (0 - 5 %) 0.8 Basophils % (0.0 - 2.0 %) 0.3 Absolute Granulocytes (1.4 - 6.5 /CUMM) 8.0 H Absolute Lymphocytes (1.2 - 3.4 /CUMM) 1.1 L Absolute Monocytes (0.10 - 0.60 /CUMM) 0.8 H Absolute Eosinophils (0.0 - 0.7 /CUMM) 0.1 Absolute Basophils (0.0 - 0.2 /CUMM) 0 PUBS MCHC (33.0 - 37.0 G/DL) 34.5 01/06 0600 Chemistry Sodium (137 - 145 mmol/L) 135 L Potassium (3.5 - 5.1 mmol/L) 4.0 Chloride (98 - 107 mmol/L) 97 L Carbon Dioxide (22 - 30 mmol/L) 27 Anion Gap (5 - 16) 11 BUN (9 - 20 mg/dL) 5 L Creatinine (0.7 - 1.2 mg/dL) 0.7 Estimated GFR (>60 ml/min) > 60 BUN/Creatinine Ratio (7 - 25 %) 7.1 Total Bilirubin (0.2 - 1.3 mg/dL) 1.8 H Direct Bilirubin (< 0.4 mg/dL) 1.0 H AST (17 - 59 U/L) 50 ALT (21 - 72 U/L) 51 Alkaline Phosphatase (< 127 U/L) 75 Total Protein (6.3 - 8.2 g/dL) 5.5 L Albumin (3.5 - 5.0 g/dL) 2.6 L Coagulation PT (9.4 - 12.5 SEC) 13.4 H INR (0.90 - 1.17) 1.28 H Hematology CBC w Diff NO MAN DIFF REQ WBC (4.8 - 10.8 /CUMM) 8.5 RBC (4.70 - 6.10 /CUMM) 3.94 L Hgb (14.0 - 18.0 G/DL) 12.8 L Hct (42 - 52 %) 36.6 L MCV (80.0 - 94.0 FL) 92.9 MCH (27.0 - 31.0 PG) 32.5 H RDW (11.5 - 14.5 %) 14.3 Plt Count (130 - 400 /CUMM) 65 L MPV (7.4 - 10.4 FL) 8.4 Gran % (42.2 - 75.2 %) 85.6 H Lymphocytes % (20.5 - 51.1 %) 7.8 L Monocytes % (1.7 - 9.3 %) 6.3 Eosinophils % (0 - 5 %) 0.2 Basophils % (0.0 - 2.0 %) 0.1 Absolute Granulocytes (1.4 - 6.5 /CUMM) 7.3 H Absolute Lymphocytes (1.2 - 3.4 /CUMM) 0.7 L Absolute Monocytes (0.10 - 0.60 /CUMM) 0.5 Absolute Eosinophils (0.0 - 0.7 /CUMM) 0 Absolute Basophils (0.0 - 0.2 /CUMM) 0 PUBS MCHC (33.0 - 37.0 G/DL) 35.0 Assessment/Plan Assessment/Plan A: POD #2 s/p lap alisia with CHRIS drain for gallstone pancreatitis; LFTs continue to increase (including total and direct bilirubin); MRCP yesterday negative for choledocholithiasis. Plan: Please make patient NPO/give IVF. GI to assess ? need for ERCP in setting of elevated TB/DB despite MRCP negative for choledocholithiasis. Leave CHRIS drain in place for now during GI workup. Discussed with Dr. Hussein Lester. Core Measures/Miscellaneous Venous Thromboembolism VTE Risk Factors: Age > 40 VTE Contraindications: No Contraindications VTE Prophylaxis Ordered Inpt Mech & Pharm VTE Diagnosis: No VTE Type: NONE VTE Confirmed by (Test): NONE Beta Jason Is Beta Jason a Home Med? No Antibiotics Is Patient on Antibiotics? No
--- NOTE | 2016-04-06 12:40 | Event Note ---
Event Note Event Note: Patient complains of persistent severe RUQ abdominal pain. He states that IV Dilaudid and Morphine don't relieve his pain. He feels that Percocet or Roxicodone works the best for him. He would like Roxicodone to be increased rather than receiving IV Dilaudid or Morphine. Percocet will be avoided given the concern for his hepatic pathology and transaminitis. Roxicodone 5mg Q4P will be started. Patient agrees to the plan.
--- NOTE | 2016-04-06 12:54 | PN- Gastroenterology ---
Assessment/Plan Assessment/Recommendations: 1. Hyperbilirubinemia. MRCP is negative for evident biliary obstruction/ choledocholithiasis. This degree of hyperbilirubinemia, including direct, is not unexpected in a cirrhotic postoperatively. There is no associated encephalopathy, bleeding, edema. 2. Right upper quadrant pain. This may be postoperative/abdominal wall, focal peritoneal (drain). Once again, no reason to suspect ongoing biliary obstruction. Recommendations * Begin clear liquids, and advance diet as per surgery * Stop or limit acetaminophen. As currently ordered, the dose is potentially too high * Avoid any other potential hepatotoxic medications * Follow LFTs, INR daily * Outpatient follow-up of cirrhosis, to include viral hepatitis and vaccination status, variceal and hepatocellular carcinoma screening. Subjective Subjective: Continues to have abdominal pain, but mostly in the right upper quadrant. No nausea, or vomiting. The patient is hungry. No fever. Patient is a long-standing alcohol drinker who claims to have stopped 6 months ago. He has no knowledge of previous liver disease. Objective Vital Signs and I&Os Vital Signs Date Time Temp Pulse Resp B/P Pulse O2 O2 Flow FiO2 Ox Delivery Rate 04/06 1032 82 138/80 04/06 0600 97.8 75 18 142/88 96 Nasal 2.0L Cannula 04/06 0204 98.5 76 18 99 Nasal 2.0L Cannula 04/06 0000 93 Nasal 2.0L Cannula 04/05 2217 92 Nasal 2.0L Cannula 04/05 2212 99.6 87 18 118/58 88 Room Air 04/05 1446 97.9 97 18 106/70 93 Room Air Intake & Output 04/06 1600 04/06 0400 04/05 1600 04/05 0400 04/04 0400 Intake Total 779 96 [id number] 200 8793 1600 Output Total 248 477 9227 25 1970 Balance -35 -490 440 327 939 9016 Intake, IV 600 2718 673 3015 1600 Intake, Oral 360 50 200 100 0 Output, 20 135 25 Drainage Output, Other 40 Output, Urine 975 581 027 6773 Patient 190 lb 190 lb Weight Physical Exam: Alert and oriented, normal cognition, no asterixis. No edema. No scleral icterus. Abdomen with tenderness in the right upper quadrant adjacent to the drain site, as well as referred tenderness when pressed elsewhere, to the right upper quadrant. Current Medications: Current Medications Sig/Danuta Start time Last Medication Dose Route Stop Time Status Admin Acetaminophen 650 MG Q4P PRN 04/03 2100 AC PO Acetaminophen/ 1 TAB Q4P PRN 04/06 1245 UNVr Hydrocodone Bitart PO Dextrose/Sodium 1,000 ML Q13H 04/05 1030 AC 04/06 Chloride IV 0842 Docusate Sodium 100 MG BID 04/03 2200 AC 04/06 PO 1032 Gabapentin 100 MG Q8 04/04 1400 AC 04/06 PO 0517 Hydromorphone HCl 1 MG Q4P PRN 04/05 0815 DC 04/05 IV 1626 Hydroxyzine HCl 50 MG DAILY 04/04 1000 AC 04/06 PO 1032 Insulin Aspart 0 TIDAC 04/06 0800 DC SC Insulin Aspart 0 TIDAC 04/05 1200 DC 04/05 SC 0832 Insulin Detemir 12 UNITS BID 04/06 1000 AC 04/06 SC 1034 Insulin Detemir 25 UNITS BID 04/04 2200 DC 04/05 SC 2229 Insulin Human Regular 0 Q6 04/06 1200 AC SC Insulin Human Regular 0 Q6 04/05 1800 DC 04/05 SC 2006 Melatonin 3 MG ONCE ONE 04/05 2345 DC 04/05 PO 04/05 2346 2337 Morphine Sulfate 2 MG ONCE ONE 04/05 2245 DC 04/05 IV 04/05 2246 2316 Omeprazole 20 MG DAILY AC 04/04 0700 AC 04/06 PO 0517 Ondansetron HCl 4 MG Q6P PRN 04/03 2100 AC IV Oxycodone HCl 5 MG Q4 HRS NEEDED PRN 04/06 1245 UNVr PO Oxycodone/ 2 TAB Q4 HRS NEEDED PRN 04/06 1245 CAN Acetaminophen PO Oxycodone/ 2 TAB Q6-PRN PRN 04/05 0500 DC 04/06 Acetaminophen PO 1033 Patient Medication 1 ED .STK-MED ONE 04/05 1342 DC Teaching ED 04/05 1343 Senna/Docusate Sodium 1 TAB AT BEDTIME 04/03 2200 AC 04/05 PO 2220 Tamsulosin HCl 0.4 MG DAILY 04/04 1000 AC 04/06 PO 1032 Results Pertinent Lab Results: Laboratory Tests 04/06 04/05 0630 2310 Chemistry Sodium (137 - 145 mmol/L) 138 Potassium (3.5 - 5.1 mmol/L) 4.0 Chloride (98 - 107 mmol/L) 99 Carbon Dioxide (22 - 30 mmol/L) 30 Anion Gap (5 - 16) 8 BUN (9 - 20 mg/dL) 6 L Creatinine (0.7 - 1.2 mg/dL) 0.7 Estimated GFR (>60 ml/min) > 60 BUN/Creatinine Ratio (7 - 25 %) 8.6 Total Bilirubin (0.2 - 1.3 mg/dL) 2.1 H Direct Bilirubin (< 0.4 mg/dL) 1.3 H AST (17 - 59 U/L) 50 ALT (21 - 72 U/L) 47 Alkaline Phosphatase (< 127 U/L) 72 Troponin I (<0.11 ng/ml) < 0.01 Total Protein (6.3 - 8.2 g/dL) 5.5 L Albumin (3.5 - 5.0 g/dL) 2.5 L Amylase (30 - 110 U/L) 277 H Lipase (23 - 300 U/L) 35 Hematology CBC w Diff NO MAN DIFF REQ WBC (4.8 - 10.8 /CUMM) 10.0 RBC (4.70 - 6.10 /CUMM) 3.88 L Hgb (14.0 - 18.0 G/DL) 12.6 L Hct (42 - 52 %) 36.4 L MCV (80.0 - 94.0 FL) 93.8 MCH (27.0 - 31.0 PG) 32.4 H RDW (11.5 - 14.5 %) 14.7 H Plt Count (130 - 400 /CUMM) 52 L MPV (7.4 - 10.4 FL) 9.0 Gran % (42.2 - 75.2 %) 80.2 H Lymphocytes % (20.5 - 51.1 %) 11.0 L Monocytes % (1.7 - 9.3 %) 7.7 Eosinophils % (0 - 5 %) 0.8 Basophils % (0.0 - 2.0 %) 0.3 Absolute Granulocytes (1.4 - 6.5 /CUMM) 8.0 H Absolute Lymphocytes (1.2 - 3.4 /CUMM) 1.1 L Absolute Monocytes (0.10 - 0.60 /CUMM) 0.8 H Absolute Eosinophils (0.0 - 0.7 /CUMM) 0.1 Absolute Basophils (0.0 - 0.2 /CUMM) 0 PUBS MCHC (33.0 - 37.0 G/DL) 34.5 06 01/05 0600 0650 Chemistry Sodium (137 - 145 mmol/L) 135 L Potassium (3.5 - 5.1 mmol/L) 4.0 Chloride (98 - 107 mmol/L) 97 L Carbon Dioxide (22 - 30 mmol/L) 27 Anion Gap (5 - 16) 11 BUN (9 - 20 mg/dL) 5 L Creatinine (0.7 - 1.2 mg/dL) 0.7 Estimated GFR (>60 ml/min) > 60 BUN/Creatinine Ratio (7 - 25 %) 7.1 Total Bilirubin (0.2 - 1.3 mg/dL) 1.8 H Direct Bilirubin (< 0.4 mg/dL) 1.0 H AST (17 - 59 U/L) 50 ALT (21 - 72 U/L) 51 Alkaline Phosphatase (< 127 U/L) 75 Total Protein (6.3 - 8.2 g/dL) 5.5 L Albumin (3.5 - 5.0 g/dL) 2.6 L RBC Folate (>280) 473 Coagulation PT (9.4 - 12.5 SEC) 13.4 H INR (0.90 - 1.17) 1.28 H Hematology CBC w Diff NO MAN DIFF REQ WBC (4.8 - 10.8 /CUMM) 8.5 RBC (4.70 - 6.10 /CUMM) 3.94 L Hgb (14.0 - 18.0 G/DL) 12.8 L Hct (42 - 52 %) 36.6 L MCV (80.0 - 94.0 FL) 92.9 MCH (27.0 - 31.0 PG) 32.5 H RDW (11.5 - 14.5 %) 14.3 Plt Count (130 - 400 /CUMM) 65 L MPV (7.4 - 10.4 FL) 8.4 Gran % (42.2 - 75.2 %) 85.6 H Lymphocytes % (20.5 - 51.1 %) 7.8 L Monocytes % (1.7 - 9.3 %) 6.3 Eosinophils % (0 - 5 %) 0.2 Basophils % (0.0 - 2.0 %) 0.1 Absolute Granulocytes (1.4 - 6.5 /CUMM) 7.3 H Absolute Lymphocytes (1.2 - 3.4 /CUMM) 0.7 L Absolute Monocytes (0.10 - 0.60 /CUMM) 0.5 Absolute Eosinophils (0.0 - 0.7 /CUMM) 0 Absolute Basophils (0.0 - 0.2 /CUMM) 0 PUBS MCHC (33.0 - 37.0 G/DL) 35.0 04/04 04/04 04/03 0650 0600 1520 Chemistry Sodium (137 - 145 mmol/L) 138 Potassium (3.5 - 5.1 mmol/L) 3.9 Chloride (98 - 107 mmol/L) 99 Carbon Dioxide (22 - 30 mmol/L) 30 Anion Gap (5 - 16) 9 BUN (9 - 20 mg/dL) 6 L Creatinine (0.7 - 1.2 mg/dL) 0.7 Estimated GFR (>60 ml/min) > 60 BUN/Creatinine Ratio (7 - 25 %) 8.6 Hemoglobin A1c (<5.7) 7.3 H Lactic Acid (0.7 - 2.1 mmol/L) 1.6 Total Bilirubin (0.2 - 1.3 mg/dL) 1.3 Direct Bilirubin (< 0.4 mg/dL) 0.7 H AST (17 - 59 U/L) 44 ALT (21 - 72 U/L) 47 Alkaline Phosphatase (< 127 U/L) 104 Total Protein (6.3 - 8.2 g/dL) 5.9 L Albumin (3.5 - 5.0 g/dL) 2.7 L Amylase (30 - 110 U/L) 130 H Lipase (23 - 300 U/L) 337 H Vitamin B12 (239 - 931 pg/mL) 877 25-OH Vitamin D Total (30 - 100 ng/ml) 12.7 L Hematology CBC w Diff NO MAN DIFF REQ WBC (4.8 - 10.8 /CUMM) 4.7 L RBC (4.70 - 6.10 /CUMM) 3.82 L Hgb (14.0 - 18.0 G/DL) 12.3 L Hct (42 - 52 %) 35.6 L MCV (80.0 - 94.0 FL) 93.2 MCH (27.0 - 31.0 PG) 32.1 H RDW (11.5 - 14.5 %) 14.3 Plt Count (130 - 400 /CUMM) 66 L MPV (7.4 - 10.4 FL) 8.0 Gran % (42.2 - 75.2 %) 54.0 Lymphocytes % (20.5 - 51.1 %) 31.7 Monocytes % (1.7 - 9.3 %) 9.5 H Eosinophils % (0 - 5 %) 4.3 Basophils % (0.0 - 2.0 %) 0.5 Absolute Granulocytes (1.4 - 6.5 /CUMM) 2.5 Absolute Lymphocytes (1.2 - 3.4 /CUMM) 1.5 Absolute Monocytes (0.10 - 0.60 /CUMM) 0.4 Absolute Eosinophils (0.0 - 0.7 /CUMM) 0.2 Absolute Basophils (0.0 - 0.2 /CUMM) 0 PUBS MCHC (33.0 - 37.0 G/DL) 34.5 04/03 04/03 1335 1317 Chemistry Sodium (137 - 145 mmol/L) 139 Potassium (3.5 - 5.1 mmol/L) 3.8 Chloride (98 - 107 mmol/L) 101 Carbon Dioxide (22 - 30 mmol/L) 26 Anion Gap (5 - 16) 13 BUN (9 - 20 mg/dL) 7 L Creatinine (0.7 - 1.2 mg/dL) 0.6 L Estimated GFR (>60 ml/min) > 60 BUN/Creatinine Ratio (7 - 25 %) 11.7 Glucose (65 - 99 mg/dL) 248 H Lactic Acid (0.7 - 2.1 mmol/L) 2.2 H Calcium (8.4 - 10.2 mg/dL) 8.6 Total Bilirubin (0.2 - 1.3 mg/dL) 1.5 H Direct Bilirubin (< 0.4 mg/dL) 0.9 H AST (17 - 59 U/L) 51 ALT (21 - 72 U/L) 57 Alkaline Phosphatase (< 127 U/L) 161 H Troponin I (<0.11 ng/ml) < 0.01 Total Protein (6.3 - 8.2 g/dL) 7.0 Albumin (3.5 - 5.0 g/dL) 3.3 L Globulin (1.9 - 4.2 gm/dL) 3.7 Albumin/Globulin Ratio (1.1 - 2.2 %) 0.9 L Amylase (30 - 110 U/L) 156 H Lipase (23 - 300 U/L) 544 H Coagulation PT (9.4 - 12.5 SEC) 12.0 INR (0.90 - 1.17) 1.14 APTT (25 - 37 SEC) 32 Hematology CBC w Diff NO MAN DIFF REQ WBC (4.8 - 10.8 /CUMM) 4.8 RBC (4.70 - 6.10 /CUMM) 4.43 L Hgb (14.0 - 18.0 G/DL) 14.2 Hct (42 - 52 %) 40.8 L MCV (80.0 - 94.0 FL) 92.2 MCH (27.0 - 31.0 PG) 32.0 H RDW (11.5 - 14.5 %) 14.4 Plt Count (130 - 400 /CUMM) 70 L MPV (7.4 - 10.4 FL) 8.5 Gran % (42.2 - 75.2 %) 68.0 Lymphocytes % (20.5 - 51.1 %) 21.7 Monocytes % (1.7 - 9.3 %) 8.3 Eosinophils % (0 - 5 %) 1.8 Basophils % (0.0 - 2.0 %) 0.2 Absolute Granulocytes (1.4 - 6.5 /CUMM) 3.2 Absolute Lymphocytes (1.2 - 3.4 /CUMM) 1.0 L Absolute Monocytes (0.10 - 0.60 /CUMM) 0.4 Absolute Eosinophils (0.0 - 0.7 /CUMM) 0.1 Absolute Basophils (0.0 - 0.2 /CUMM) 0 PUBS MCHC (33.0 - 37.0 G/DL) 34.7 Toxicology Serum Alcohol (<10 MG/DL) < 10.0 Acetone Level (NEGATIVE) NEGATIVE Urines Urinalysis LIGHT H Urine Color (YEL,AMB,STR) MEHDI Urine Clarity (CLEAR) CLEAR Urine pH (5.0 - 8.0) 6.5 Ur Specific [place] (1.001 - 1.035) 1.015 Urine Protein (NEG,<30 MG/DL) TRACE H Urine Ketones (NEG) NEG Urine Nitrite (NEG) NEG Urine Bilirubin (NEG) POS@ICTO H Urine Urobilinogen (0.1 - 1.0 EU/dl) 4.0 H Ur Leukocyte Esterase (NEG) NEG Ur Microscopic SEDIMENT EXAMINED Urine RBC (0 - 5 /HPF) 3-5 Urine WBC (0 - 2 /HPF) 1-3 H Ur Epithelial Cells (NONE,FEW) FEW Urine Mucus (FEW,NONE) FEW Urine Hemoglobin (NEG) TRACE-INTACT H Urine Glucose (N MG/DL) >=1000 H 04/03 04/03 1305 1304 Chemistry Troponin I Cancelled Toxicology Acetone Level Cancelled
[2016-04-06 13:53] VITALS: BP 138/60
[2016-04-06 22:22] VITALS: BP 124/80
[2016-04-07 06:14] VITALS: BP 142/89
[2016-04-07 08:22] LABS: PT 13.4 SEC (9.4-12.5)
[2016-04-07 08:27] LABS: ABSOLUTE BASOPHIL COUNT 0 /CUMM (0.0-0.2); ABSOLUTE EOSINOPHIL COUNT 0.1 /CUMM (0.0-0.7); ABSOLUTE GRANULOCYTE CT 10.4 /CUMM (1.4-6.5); ABSOLUTE LYMPH COUNT 1.2 /CUMM (1.2-3.4); ABSOLUTE MONOCYTE COUNT 0.9 /CUMM (0.10-0.60); BASOPHIL % 0 % (0.0-2.0); GRANULOCYTE % 82.2 % (42.2-75.2); HEMATOCRIT 38.7 % (42-52); MEAN CORPUSCULAR HGB 32.1 PG (27.0-31.0); MEAN CORPUSCULAR HGB CONC 33.9 G/DL (33.0-37.0); MEAN CORPUSCULAR VOLUME 94.7 FL (80.0-94.0); PLATELET COUNT 59 /CUMM (130-400); RBC DISTRIBUTION WIDTH 14.8 % (11.5-14.5); RED BLOOD CELL CT 4.08 /CUMM (4.70-6.10); WHITE BLOOD CELL COUNT 12.7 /CUMM (4.8-10.8)
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
--- NOTE | 2016-04-07 12:24 | PN- General Surgery ---
Subjective Subjective: Patient continues to complain of right-sided abdominal pain which radiates into the right chest area. He states that it is not relieved by pain medication. He also complains of a bad taste in his mouth. He is tolerating a full liquid diet. No nausea or vomiting. He had a bowel movement yesterday afternoon. Voiding spontaneously. Otherwise denies headache, dizziness, shortness of breath. Objective Vital Signs and I&Os Vital Signs Date Time Temp Pulse Resp B/P Pulse O2 O2 Flow FiO2 Ox Delivery Rate 04/07 1041 105 128/80 04/07 0614 99.1 79 20 142/89 92 Nasal 1.0L Cannula 04/07 0000 Nasal 1.0L Cannula 04/06 2222 98.5 89 20 124/80 92 04/06 1600 93 Nasal 1.0L Cannula 04/06 1353 98.0 80 20 138/60 93 Nasal 2.0L Cannula Intake & Output 04/07 1600 04/07 0800 04/07 0000 04/06 1600 04/06 0800 04/06 0000 Intake Total 360 1200 960 50 Output Total 460 1400 360 695 540 Balance -100 -1400 840 265 -490 Intake, IV 600 600 Intake, Oral 360 600 360 50 Number 1 Bowel Movements Output, 60 50 60 20 Drainage Output, Other 40 Output, Urine 400 1350 300 675 500 Physical Exam: Gen.: Patient is awake and alert. He is sitting in the chair and in no acute distress. Abdomen: Soft, but still moderately distended. The right CHRIS drain continues to have moderate amounts of serosanguineous drainage. No bile or purulence noted. Normoactive bowel sounds were heard. Results Last 48 Hours of Labs: Laboratory Tests 04/07 04/06 0658 0630 Chemistry Sodium (137 - 145 mmol/L) 135 L 138 Potassium (3.5 - 5.1 mmol/L) 4.5 4.0 Chloride (98 - 107 mmol/L) 95 L 99 Carbon Dioxide (22 - 30 mmol/L) 30 30 Anion Gap (5 - 16) 10 8 BUN (9 - 20 mg/dL) 6 L 6 L Creatinine (0.7 - 1.2 mg/dL) 0.6 L 0.7 Estimated GFR (>60 ml/min) > 60 > 60 BUN/Creatinine Ratio (7 - 25 %) 10.0 8.6 Total Bilirubin (0.2 - 1.3 mg/dL) 2.2 H 2.1 H Direct Bilirubin (< 0.4 mg/dL) 1.5 H 1.3 H AST (17 - 59 U/L) 34 50 ALT (21 - 72 U/L) 46 47 Alkaline Phosphatase (< 127 U/L) 91 72 Total Protein (6.3 - 8.2 g/dL) 5.6 L 5.5 L Albumin (3.5 - 5.0 g/dL) 2.7 L 2.5 L Amylase (30 - 110 U/L) 277 H Lipase (23 - 300 U/L) 35 Coagulation PT (9.4 - 12.5 SEC) 13.4 H INR (0.90 - 1.17) 1.28 H Hematology CBC w Diff NO MAN DIFF REQ NO MAN DIFF REQ WBC (4.8 - 10.8 /CUMM) 12.7 H 10.0 RBC (4.70 - 6.10 /CUMM) 4.08 L 3.88 L Hgb (14.0 - 18.0 G/DL) 13.1 L 12.6 L Hct (42 - 52 %) 38.7 L 36.4 L MCV (80.0 - 94.0 FL) 94.7 H 93.8 MCH (27.0 - 31.0 PG) 32.1 H 32.4 H RDW (11.5 - 14.5 %) 14.8 H 14.7 H Plt Count (130 - 400 /CUMM) 59 L 52 L MPV (7.4 - 10.4 FL) 9.0 9.0 Gran % (42.2 - 75.2 %) 82.2 H 80.2 H Lymphocytes % (20.5 - 51.1 %) 9.6 L 11.0 L Monocytes % (1.7 - 9.3 %) 7.2 7.7 Eosinophils % (0 - 5 %) 1.0 0.8 Basophils % (0.0 - 2.0 %) 0 L 0.3 Absolute Granulocytes (1.4 - 6.5 /CUMM) 10.4 H 8.0 H Absolute Lymphocytes (1.2 - 3.4 /CUMM) 1.2 1.1 L Absolute Monocytes (0.10 - 0.60 /CUMM) 0.9 H 0.8 H Absolute Eosinophils (0.0 - 0.7 /CUMM) 0.1 0.1 Absolute Basophils (0.0 - 0.2 /CUMM) 0 0 PUBS MCHC (33.0 - 37.0 G/DL) 33.9 34.5 04/05 2310 Chemistry Troponin I (<0.11 ng/ml) < 0.01 Assessment/Plan Assessment/Plan Patient is a 55-year-old male who is now postoperative day #3 status post laparoscopic cholecystectomy for gallstone pancreatitis. He has had persistent elevated LFTs, but MRCP was negative for choledocholithiasis. He does have cirrhosis, however. Recommendations: -Continue to advance diet as tolerated. -Leave CHRIS drain in place for now, as it continues to have moderate output. -GI is not recommending ERCP, as they feel the LFTs are due to cirrhosis. -Agree with avoiding of hepatotoxic agents. Would DC Vicodin, as it contains acetaminophen. Can increase dose of oxycodone for better pain control as needed. -Continue to follow LFTs. -Patient states that he has a bad taste in his mouth. Consider increasing dose of Prilosec 40 mg or adding an antacid. ?GI input. -Continue medical management per primary team. -Will discuss further recommendations with general surgery attending.
[2016-04-07 14:34] VITALS: BP 126/80
[2016-04-07 22:38] VITALS: BP 120/70
[2016-04-08 06:56] VITALS: BP 136/84
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
[2016-04-08 08:28] LABS: PT 12.5 SEC (9.4-12.5)
[2016-04-08 08:41] LABS: ABSOLUTE BASOPHIL COUNT 0 /CUMM (0.0-0.2); ABSOLUTE EOSINOPHIL COUNT 0.3 /CUMM (0.0-0.7); ABSOLUTE GRANULOCYTE CT 7.8 /CUMM (1.4-6.5); ABSOLUTE LYMPH COUNT 1.6 /CUMM (1.2-3.4); BASOPHIL % 0.4 % (0.0-2.0); EOSINOPHIL % 2.9 % (0-5); GRANULOCYTE % 72.7 % (42.2-75.2); HEMATOCRIT 36.5 % (42-52); MEAN CORPUSCULAR HGB 32.3 PG (27.0-31.0); MEAN CORPUSCULAR HGB CONC 34.1 G/DL (33.0-37.0); MEAN CORPUSCULAR VOLUME 94.8 FL (80.0-94.0); MEAN PLATELET VOLUME 8.6 FL (7.4-10.4); PLATELET COUNT 70 /CUMM (130-400); RED BLOOD CELL CT 3.85 /CUMM (4.70-6.10); WHITE BLOOD CELL COUNT 10.7 /CUMM (4.8-10.8)
--- NOTE | 2016-04-08 09:26 | PN- General Surgery ---
See Addendum Subjective Subjective: Post op alisia with elevated LFT's Pt continues to have RUQ pain although states it has improved from yesterday Tolerating full liquid diet without pain or nausea, +bm, +flatus Objective Vital Signs and I&Os Vital Signs Date Time Temp Pulse Resp B/P Pulse O2 O2 Flow FiO2 Ox Delivery Rate 04/08 0811 88 136/82 04/08 0656 99.7 88 20 136/84 93 04/07 2238 99.8 82 20 120/70 98 04/07 1600 Nasal 4.0L Cannula 04/07 1434 99.0 89 20 126/80 95 Nasal 4.0L Cannula 04/07 1041 105 128/80 Intake & Output 04/08 1600 04/08 0804/08 0000 04/07 1600 04/07 0000 Intake Total 500 700 360 Output Total 275 60 90 460 1400 Balance -275 440 610 -100 -1400 Intake, Oral 500 700 360 Output, 60 90 60 50 Drainage Output, Urine 934 899 1706 Physical Exam: Tmax 99.8, mild tachycardia yest, today stable in the 80's although now with increased O2 requirement at 4LNC, No sob Abd: softly distended, good bs, tender to moderate palp in RUQ, nontender elsewhere CHRIS in place with serosang drainage - 60cc past 8 hours 150cc/24 hrs Assessment/Plan Assessment/Plan 55 yo male s/p lap alisia, ?gs pancreatitis however mrcp negative Labs improved today Advance diet as tolerated Looks good from surgical standpoint, management per primary team Will discuss CHRIS with Dr Lester
--- NOTE | 2016-04-08 12:29 | RADIOLOGY REPORT ---
EXAMINATION: XR CHEST CLINICAL INFORMATION: Shortness of breath. Oxygen desaturation. COMPARISON: Chest x-ray dated 04/05/2016. TECHNIQUE: Semierect portable view of the chest and lateral view of the chest. FINDINGS: The cardiomediastinal silhouette is within normal limits in size. Low lung volumes are again seen. There is a small right-sided pleural effusion. Bibasilar opacities are seen, possibly subsegmental atelectasis versus subtle pneumonia. No significant left-sided pleural effusion is seen. No pneumothorax is present. Surgical fixation hardware is seen in the left humeral head and proximal shaft. Right humeral neck fracture is only partially included on this exam. Osteopenia is seen. IMPRESSION: 1. Small right-sided pleural effusion and bibasilar opacities, possibly subsegmental atelectasis versus pneumonia. Clinical correlation requested. 2. Low lung volumes.
--- NOTE | 2016-04-08 12:33 | ULTRASOUND REPORT ---
EXAMINATION: US ABDOMEN LIMITED CLINICAL INFORMATION: Generalized abdominal tenderness. Rule out ascites COMPARISON: Abdominal MRI 04/05/2016 TECHNIQUE: Real-time imaging of the abdomen was performed to assess for ascites FINDINGS/IMPRESSION: Stable in comparison to the 04/05/2016 abdominal MRI, there is small volume ascites within the right upper quadrant surrounding the cirrhotic liver. No new remote ascites.
[2016-04-08 14:15] VITALS: BP 116/60
--- NOTE | 2016-04-08 14:29 | Event Note ---
Event Note Event Note: CHRIS Drain dc'd bedside. Stay suture was cut and drain was removed from bulb suction then drain was pulled. Patient tolerated procedure well.
--- NOTE | 2016-04-08 17:25 | Patient Discharge Instructions ---
Discharge Instructions General Discharge Information You were seen/treated for: Right upper quardant pain secondary to Gall Bladder stones You had these procedures: you had a cholecystectomy done after which a drain was placed to drain hematoma Watch for these problems: Watch for fever, abdominal pain, in case of emergency go to [facility]. Special Instructions: Please schedule a follow up appointment in one week with / Marcos Lester, Your new Primary care physician Dr.Neha Tena, Anthropology Lecturer Dr. Loi Perkins in one week. Please abstain from Alcohol (specially with pain meds) and eat a low fat diet. Watch for fever, abdominal pain, in case of emergency go to [facility]. Diet Continue normal diet: Yes Recommended Diet: Low Fat Activity Activity Self Limited: Yes Acute Coronary Syndrome Inclusion Criteria At DC or during hospital stay patient has or had the following: ACS DIAGNOSIS No Discharge Core Measures Meds if any: Prescribed or Continued at Discharge Meds if any: NOT Prescribed or Continued at Discharge Congestive Heart Failure Inclusion Criteria At DC or during hospital stay patient has or had the following: CHF DIAGNOSIS No Discharge Core Measures Meds if any: Prescribed or Continued at Discharge Meds if any: NOT Prescribed or Continued at Discharge Cerebrovascular accident Inclusion Criteria At DC or during hospital stay patient has or had the following: CVA/TIA Diagnosis No Discharge Core Measures Meds if any: Prescribed or Continued at Discharge Meds if any: NOT Prescribed or Continued at Discharge Venous thromboembolism Inclusion Criteria VTE Diagnosis No VTE Type NONE VTE Confirmed by (Test) NONE Discharge Core Measures - Per Current guidelines, there needs to be overlap - treatment for the first 5 days of Warfarin therapy. - If discharged on Warfarin prior to 5 days of - overlap therapy, the patient will need to be - assessed for post discharge needs including - *Post discharge parental anticoagulation - *Warfarin and/or parental anticoagulation education - *Follow up date to check INR post discharge At least 5 days overlap therapy as Inpatient No Meds if any: Prescribed or Continued at Discharge Note: Overlap Therapy is Warfarin and Anticoagulant Meds if any: NOT Prescribed or Continued at Discharge
[2016-04-08 22:16] VITALS: BP 122/80
[2016-04-09 07:07] VITALS: BP 114/66
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
[2016-04-09 08:21] LABS: ABSOLUTE BASOPHIL COUNT 0 /CUMM (0.0-0.2); ABSOLUTE EOSINOPHIL COUNT 0.6 /CUMM (0.0-0.7); ABSOLUTE GRANULOCYTE CT 7.5 /CUMM (1.4-6.5); ABSOLUTE LYMPH COUNT 1.5 /CUMM (1.2-3.4); ABSOLUTE MONOCYTE COUNT 1.3 /CUMM (0.10-0.60); BASOPHIL % 0.1 % (0.0-2.0); EOSINOPHIL % 5.1 % (0-5); GRANULOCYTE % 69.1 % (42.2-75.2); HEMATOCRIT 35.2 % (42-52); MEAN CORPUSCULAR HGB 32.2 PG (27.0-31.0); MEAN CORPUSCULAR VOLUME 94.6 FL (80.0-94.0); MEAN PLATELET VOLUME 8.9 FL (7.4-10.4); PLATELET COUNT 78 /CUMM (130-400); RBC DISTRIBUTION WIDTH 14.6 % (11.5-14.5); RED BLOOD CELL CT 3.73 /CUMM (4.70-6.10); WHITE BLOOD CELL COUNT 10.8 /CUMM (4.8-10.8)
[2016-04-09 14:10] VITALS: BP 128/60
--- NOTE | 2016-04-09 18:17 | Cons- Infect Disease ---
General Information and HPI Consulting Request Date of Consult: 04/09/16 Requested By: RAGHAV CARRERA M.D Reason for Consult: Fever status post cholecystectomy Source of Information: patient Exam Limitations: poor historian, language barrier History of Present Illness: This is a 55-year-old man with a history of diabetes, psoriasis, alcoholic abuse with pancreatitis, and cholelithiasis, status post ERCP with stone removal several years prior to admission, with intermittent right upper quadrant pain for at least 8 months prior to admission, seen at [place] over one week prior to admission with right upper quadrant pain and diagnosed with cholelithiasis, admitted on April 03 with increasing abdominal pain, nausea and vomiting and one week of dysuria, urgency and frequency. On admission he was afebrile. Laboratory data revealed a white blood cell count of 5000, with a platelet count of 70,000, BUN/creatinine 7 and 0.6, amylase/lipase 156 and 544, bilirubin 1.5, alk phosphatase 161, with a normal AST/ALT, INR 1.14. Urinalysis 3-5 RBC/1-3 WBCs. Right upper quadrant ultrasound revealed cholelithiasis with no evidence of cholecystitis or choledocholithiasis. CT of the abdomen and pelvis with IV contrast revealed cholelithiasis with no acute changes of the gallbladder wall and no biliary ductal dilatation; changes of cirrhosis of the liver with splenomegaly noted. He was given a dose of Ceftriaxone in the ER. On April 04 he was taken to the OR for a laparoscopic cholecystectomy, with Cefazolin prophylaxis and with Unasyn given postoperatively 2 doses. Of note the gallbladder was removed in pieces, with the back wall of the gallbladder left in , as the back wall of the liver was severely inflamed. Postop his bilirubin increased to 1.8, with an MRCP on April 05 negative for choledocholithiasis, with a normal common bile duct, no intrahepatic biliary ductal dilatation, a cirrhotic liver, splenomegaly and a small volume of ascites within the right upper quadrant. Postop he has continued to have right upper quadrant pain. He has been tolerating a diet, with no vomiting, though he does report nausea. On April 07 he noted dyspnea, with increase in his pain with inspiration. On April 08 he spiked a temperature to 101 and was begun empirically on Vancomycin and Ceftazidime. His white blood cell count increased to 8.5 on Sandra 6 and has increased further since. At present he continues to complain of right upper quadrant pain with nausea. He also notes dysuria with dark urine. Allergies/Medications Allergies: Coded Allergies: shrimp (Intermediate, EDEMA 04/03/16) Home Med List: HYDROMORPHONE HCL (Dilaudid) 2 MG TABLET 1 TAB PO TID PAIN Hydroxyzine Pamoate 50 MG CAPSULE 1 CAP PO DAILY ANXIETY (Reported) Insulin-Lantus (Lantus) 100 UNIT/ML VIAL DIABETES (Reported) Ondansetron (Zofran Odt) 4 MG TAB.RAPDIS 1 TAB SL Q8 NAUSEA OXYCODONE HCL/ACETAMINOPHEN (Percocet 5-325 MG Tablet) 325 MG/5 MG TAB 1-2 TAB PO Q4-6 PRN PRN PAIN Pantoprazole Sodium 20 MG TABLET.DR 20 MG PO DAILY GERD (Reported) Sertraline HCl 100 MG TABLET 150 MG PO DAILY DEPRESSION (Reported) Tamsulosin HCl 0.4 MG CAP.ER.24H 0.4 MG PO DAILY PROSTATE (Reported) Past History Travel History Traveled to [place] past 21 day No Medical History Blood Transfusion Hx: Yes Neurological: NONE EENT: NONE Cardiovascular: NONE Respiratory: NONE Gastrointestinal: pancreatitis Hepatic: cholelithiasis, status post previous ERCP with stone retrieval Renal: nephrolithiasis Musculoskeletal: falls, osteoarthritis Psychiatric: alcohol dependence, anxiety, depression Endocrine: diabetes Blood Disorders: NONE Cancer(s): NONE EDGE BRUSHER/Reproductive: NONE Other Medical Hx: Psoriasis History of MRSA: No History of VRE: No History of CDIFF: No Isolation History: Standard Surgical History Surgical History: appendectomy, L UPPER ARM FX REPAIR Psychosocial History Where Do You Live? Home Services at Home: None Smoking Status: Current Everyday Smoker ETOH Use: denies use Illicit Drug Use: denies illicit drug use Functional Ability ADLs Independent: dressing, eating, toileting, bathing. Ambulation: independent IADLs Needs Assist: shopping, housework, finances, food prep, telephone, transportation, medication admin. Review of Systems Review of Systems Neurological/Psychological: Reports: paresthesia (both lower extremities). All Other Systems: Reviewed and Negative Exam & Diagnostic Data Last 24 Hrs of Vital Signs/I&O Vital Signs Date Time Temp Pulse Resp B/P Pulse O2 O2 Flow FiO2 Ox Delivery Rate 04/09 1517 100.0 04/09 1455 100.2 04/09 1410 101.2 88 20 128/60 90 Room Air 04/09 1356 101.2 04/09 0800 Nasal 2.0L Cannula 04/09 0707 98.8 93 20 114/66 92 04/09 0000 92 Nasal 2.0L Cannula 04/08 2216 99.4 96 20 122/80 92 Intake & Output 04/09 1600 04/09 0800 04/09 0000 Intake Total 612 50 600 Output Total 350 400 420 Balance 262 -350 180 Intake, IV 12 0 Intake, Oral 600 50 600 Number 0 Bowel Movements Output, Urine 350 400 420 Physical Exam Other Physical Findings: He is awake and alert in no acute distress. MAXIMUM TEMPERATURE 101.2. Skin reveals psoriatic lesions, particularly over the right leg. HEENT exam is negative. Neck is supple with no adenopathy. Lungs decreased breath sounds on the right. Heart regular rhythm with no murmur. Abdomen is distended, tender on the right, with positive bowel sounds. scrubber machine tender over the right flank. Extremities no cyanosis, clubbing or edema. Neuro is without focality. Last 24 Hours of Lab Results: Laboratory Tests 04/09 0615 Chemistry Sodium (137 - 145 mmol/L) 134 L Potassium (3.5 - 5.1 mmol/L) 4.0 Chloride (98 - 107 mmol/L) 94 L Carbon Dioxide (22 - 30 mmol/L) 30 Anion Gap (5 - 16) 10 BUN (9 - 20 mg/dL) 7 L Creatinine (0.7 - 1.2 mg/dL) 0.6 L Estimated GFR (>60 ml/min) > 60 BUN/Creatinine Ratio (7 - 25 %) 11.7 Total Bilirubin (0.2 - 1.3 mg/dL) 2.2 H Direct Bilirubin (< 0.4 mg/dL) 1.4 H AST (17 - 59 U/L) 26 ALT (21 - 72 U/L) 40 Alkaline Phosphatase (< 127 U/L) 105 Total Protein (6.3 - 8.2 g/dL) 5.6 L Albumin (3.5 - 5.0 g/dL) 2.5 L Coagulation PT (9.4 - 12.5 SEC) 12.0 INR (0.90 - 1.17) 1.14 Hematology CBC w Diff NO MAN DIFF REQ WBC (4.8 - 10.8 /CUMM) 10.8 RBC (4.70 - 6.10 /CUMM) 3.73 L Hgb (14.0 - 18.0 G/DL) 12.0 L Hct (42 - 52 %) 35.2 L MCV (80.0 - 94.0 FL) 94.6 H MCH (27.0 - 31.0 PG) 32.2 H RDW (11.5 - 14.5 %) 14.6 H Plt Count (130 - 400 /CUMM) 78 L MPV (7.4 - 10.4 FL) 8.9 Gran % (42.2 - 75.2 %) 69.1 Lymphocytes % (20.5 - 51.1 %) 13.6 L Monocytes % (1.7 - 9.3 %) 12.1 H Eosinophils % (0 - 5 %) 5.1 H Basophils % (0.0 - 2.0 %) 0.1 Absolute Granulocytes (1.4 - 6.5 /CUMM) 7.5 H Absolute Lymphocytes (1.2 - 3.4 /CUMM) 1.5 Absolute Monocytes (0.10 - 0.60 /CUMM) 1.3 H Absolute Eosinophils (0.0 - 0.7 /CUMM) 0.6 Absolute Basophils (0.0 - 0.2 /CUMM) 0 PUBS MCHC (33.0 - 37.0 G/DL) 34.0 Gallbladder pathology reveals chronic cholecystitis and cholelithiasis Last 24 Hours of Raad Results: Blood cultures April 04 negative Blood cultures April 08 negative Urine culture April 03 negative Urine culture April 06 negative Diagnostic Data Recent Imaging Findings: Right upper quadrant ultrasound April 02 revealed cholelithiasis with no evidence of cholecystitis or choledocholithiasis. CT of the abdomen and pelvis with IV contrast April 03 revealed cholelithiasis with no acute changes of the gallbladder wall and no biliary ductal dilatation; changes of cirrhosis of the liver with splenomegaly noted MRCP on April 05 negative for choledocholithiasis, with a normal common bile duct, no intrahepatic biliary ductal dilatation, a cirrhotic liver, splenomegaly and a small volume of ascites within the right upper quadrant. Limited abdominal ultrasound April 08 reveals a small volume of ascites within the right upper quadrant Chest x-ray April 08 reveals a small right pleural effusion with bibasilar opacities Assessment/Plan Assessment/Plan Impression: This is a 55-year-old man with diabetes, psoriasis, alcohol abuse, with pancreatitis, and cholelithiasis, status post ERCP with stone removal in the past, admitted on April 03 with recurrent right upper quadrant abdominal pain, nausea and vomiting, felt to be secondary to cholecystitis, status post laparoscopic cholecystectomy on the day after admission, with postop course complicated by persistent right upper quadrant pain, hyperbilirubinemia and, more recently, fever. He has several possible sources of fever including an infection related to the recent surgery, for example an abscess within the gallbladder fossa or liver, particularly given the difficult removal of the gallbladder, pneumonia, though his chest x-ray is more suggestive of atelectasis , or an empyema, given the evidence of a pleural effusion on the recent chest x- ray. The recent ultrasound showed only a small amount of ascites, making a process such as spontaneous bacterial peritonitis, which must be considered in this patient with presumed cirrhosis, less likely. He reports urinary symptoms, which were present for 1 week prior to admission, but his urine cultures have been negative. A noninfectious process, such as drug fever, with the increased eosinophils on his differential, or atelectasis is also possible. His thrombocytopenia appears to be chronic and likely related to his cirrhosis with hypersplenism. The etiology of his hyperbilirubinemia remains unclear and it may be related to his cirrhosis. Suggestion: 1. CT of the chest, abdomen and pelvis with IV contrast 2. TRC/incentive spirometry and attempt to obtain sputum for culture 3. Repeat urine culture 4. Discontinue Ceftazidime 5. Begin Ceftriaxone 1 g IV every 24 hours pending above Consult Acknowledgment - Thank you for your consult request.
[2016-04-09 21:54] VITALS: BP 108/60
[2016-04-10 06:46] VITALS: BP 118/70
[2016-04-10 08:06] LABS: ABSOLUTE BASOPHIL COUNT 0 /CUMM (0.0-0.2); ABSOLUTE EOSINOPHIL COUNT 0.3 /CUMM (0.0-0.7); ABSOLUTE GRANULOCYTE CT 5.7 /CUMM (1.4-6.5); ABSOLUTE LYMPH COUNT 1.1 /CUMM (1.2-3.4); ABSOLUTE MONOCYTE COUNT 0.9 /CUMM (0.10-0.60); BASOPHIL % 0.5 % (0.0-2.0); EOSINOPHIL % 3.9 % (0-5); GRANULOCYTE % 71.2 % (42.2-75.2); HEMATOCRIT 31.8 % (42-52); MEAN CORPUSCULAR HGB 32.1 PG (27.0-31.0); MEAN CORPUSCULAR HGB CONC 34.3 G/DL (33.0-37.0); MEAN CORPUSCULAR VOLUME 93.7 FL (80.0-94.0); MEAN PLATELET VOLUME 8.2 FL (7.4-10.4); PLATELET COUNT 60 /CUMM (130-400); RBC DISTRIBUTION WIDTH 14.6 % (11.5-14.5); RED BLOOD CELL CT 3.39 /CUMM (4.70-6.10)
[2016-04-10 08:21] LABS: PT 13.4 SEC (9.4-12.5)
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
--- NOTE | 2016-04-10 12:18 | CT SCAN REPORT ---
EXAMINATION: CT CHEST, ABDOMEN AND PELVIS WITH CONTRAST CLINICAL INFORMATION: Fever. Pleuritic right-sided chest pain. Fever of unknown origin. COMPARISON: Limited abdominal ultrasound dated 04/08/2016. Chest x-ray dated 04/08/2016. MRI scan of the abdomen dated 04/05/2016. CT scan of the abdomen and pelvis dated 04/03/2016. TECHNIQUE: Multidetector CT helical images of the chest, abdomen and pelvis were performed following the administration of 100 mL of intravenous Optiray 320. The data set was reformatted in the coronal and sagittal planes and reviewed on an independent workstation. DLP: 705.25 mGy-cm. FINDINGS: CHEST: LUNGS: There is a small layering right-sided pleural effusion seen extending posteriorly up to the level of the aortic arch. No significant left-sided pleural effusion is seen. There is complete collapse of the right lower lobe with dense consolidation and air bronchograms seen. No obstructing central mass is noted. There are patchy areas of groundglass opacities seen in both upper lobes, lingula and to a lesser extent in the left lower lobe, suspicious for multifocal areas of pneumonia. The central airways remain patent. LYMPHOVASCULAR STRUCTURES: Aortic and heart size are normal. No pericardial effusion is seen. No significant mediastinal, hilar or axillary adenopathy is present. THYROID GLAND: 0.7 cm nodule with internal coarse calcification is seen in the lower pole of the left lobe of the thyroid gland. Included portions of the thyroid gland otherwise unremarkable. BONES: Fixation hardware in the proximal left humerus is partially included. Multilevel moderate vertebral spurring is seen throughout the mid and lower thoracic spine. No suspicious bone findings ABDOMEN AND PELVIS: LIVER, GALLBLADDER, BILIARY TREE: Nodular cirrhotic liver is again seen with associated recanalization of the umbilical vein, small volume perihepatic ascites and relative atrophy of the right lobe and hypertrophy of the lateral segment, similar to prior study. There is also small amount of free fluid seen extending down into the pelvis. Overall, volume of ascites has increased when compared to the prior exam. No focal cystic or solid hepatic mass or intra-or extrahepatic ductal dilatation. Hepatic and portal veins patent. The gallbladder is surgically absent. There is an abnormal complex fluid collection seen in the gallbladder fossa, measuring approximately 5.5 x 5.6 x 9.8 cm. There are multiple internal air locules and prominent surrounding fat stranding and edema seen tracking from the gallbladder fossa along the right paracolic gutter and findings are suspicious for a postoperative abscess within the gallbladder fossa. PANCREAS: Normal. No ductal dilatation, mass, or surrounding stranding. SPLEEN: Spleen is enlarged, measuring 14.8 cm longitudinally. Splenic vein patent. ADRENAL GLANDS AND KIDNEYS: Adrenal glands normal. Kidneys bilaterally symmetric in size and function. In the upper pole of the left kidney, there is a 0.9 cm diameter low-attenuation mass (series 2, image 45), most consistent with a small cyst as seen on prior MRI scan. In the mid right kidney, there is a 1.3 cm diameter low-attenuation mass, consistent with a cyst, unchanged. No suspicious focal renal mass, hydronephrosis, nephrolithiasis or perinephric stranding. URETERS AND BLADDER: Ureters decompressed and within normal limits. Bladder partially distended and within normal limits. PELVIC VISCERA: Unremarkable. BOWEL LOOPS: Normal. Small and large bowel loops decompressed. Appendix not visualized. ABDOMINAL WALL: There is a right lower quadrant spigelian type hernia, containing omental fat only, unchanged. LYMPHOVASCULAR STRUCTURES: Abdominal aorta normal in caliber. Mild atherosclerotic calcifications. No periaortic collections. No abdominal or pelvic adenopathy or free fluid collection. BONES: Within normal limits. IMPRESSION: 1. Large complex fluid collection is seen in the gallbladder fossa status post cholecystectomy with extensive surrounding edema and stranding, which extends down along the right paracolic gutter. Findings are suspicious for a post operative abscess in the gallbladder fossa. An underlying bile leak may be present. 2. Nodular cirrhotic liver with portal venous hypertension as evidenced by splenomegaly, abdominal ascites, recanalization of the umbilical vein. 3. Small right-sided pleural effusion with complete collapse and consolidation of the right lower lobe. There are also multifocal areas of patchy groundglass opacities in the lungs, consistent with multifocal viral or atypical pneumonia. 4. Subcentimeter sized nodule in the left lobe of the thyroid gland. Consider further assessment with thyroid ultrasound. 5. Probable bilateral renal cysts. 6. Fat-containing right lower quadrant spigelian hernia. This critical result was discussed with Dr. Soledad Newton on 04/10/2016, 11:00 PM and it was ascertained that the content and urgency of this report was understood at the time of direct communication.
--- NOTE | 2016-04-10 12:56 | PN- Infect Dx ---
Subjective Subjective: MAXIMUM TEMPERATURE 101.2. He continues to complain of right sided abdominal pain. Objective Last 24 Hrs of Vital Signs/I&O Vital Signs Date Time Temp Pulse Resp B/P Pulse O2 O2 Flow FiO2 Ox Delivery Rate 04/10 0929 85 118/64 04/10 0800 Nasal 1.0L Cannula 04/10 0646 98.8 82 18 118/70 90 Room Air 04/10 0000 Nasal 2.0L Cannula 04/09 2154 98.9 84 18 108/60 90 04/09 1517 100.0 04/09 1455 100.2 04/09 1410 101.2 88 20 128/60 90 Room Air 04/09 1356 101.2 Intake & Output 04/10 1600 04/10 0800 04/10 0000 Intake Total 360 360 Output Total 250 Balance 110 360 Intake, Oral 360 360 Output, Urine 250 Physical Exam Other Physical Findings: He appears comfortable in no acute distress Lungs decreased breath sounds at the right base Heart regular rhythm with no murmur Abdomen is distended, tender on palpation on the right, with positive bowel sounds Extremities no cyanosis, clubbing or edema Results Last 24 Hours of Lab Results: Laboratory Tests 04/10 629 Chemistry Sodium (137 - 145 mmol/L) 133 L Potassium (3.5 - 5.1 mmol/L) 3.9 Chloride (98 - 107 mmol/L) 94 L Carbon Dioxide (22 - 30 mmol/L) 30 Anion Gap (5 - 16) 8 BUN (9 - 20 mg/dL) 8 L Creatinine (0.7 - 1.2 mg/dL) 0.6 L Estimated GFR (>60 ml/min) > 60 BUN/Creatinine Ratio (7 - 25 %) 13.3 Total Bilirubin (0.2 - 1.3 mg/dL) 1.6 H Direct Bilirubin (< 0.4 mg/dL) 1.2 H AST (17 - 59 U/L) 28 ALT (21 - 72 U/L) 39 Alkaline Phosphatase (< 127 U/L) 112 Total Protein (6.3 - 8.2 g/dL) 5.1 L Albumin (3.5 - 5.0 g/dL) 2.2 L Coagulation PT (9.4 - 12.5 SEC) 13.4 H INR (0.90 - 1.17) 1.28 H Hematology CBC w Diff NO MAN DIFF REQ WBC (4.8 - 10.8 /CUMM) 8.0 RBC (4.70 - 6.10 /CUMM) 3.39 L Hgb (14.0 - 18.0 G/DL) 10.9 L Hct (42 - 52 %) 31.8 L MCV (80.0 - 94.0 FL) 93.7 MCH (27.0 - 31.0 PG) 32.1 H RDW (11.5 - 14.5 %) 14.6 H Plt Count (130 - 400 /CUMM) 60 L MPV (7.4 - 10.4 FL) 8.2 Gran % (42.2 - 75.2 %) 71.2 Lymphocytes % (20.5 - 51.1 %) 13.7 L Monocytes % (1.7 - 9.3 %) 10.7 H Eosinophils % (0 - 5 %) 3.9 Basophils % (0.0 - 2.0 %) 0.5 Absolute Granulocytes (1.4 - 6.5 /CUMM) 5.7 Absolute Lymphocytes (1.2 - 3.4 /CUMM) 1.1 L Absolute Monocytes (0.10 - 0.60 /CUMM) 0.9 H Absolute Eosinophils (0.0 - 0.7 /CUMM) 0.3 Absolute Basophils (0.0 - 0.2 /CUMM) 0 PUBS MCHC (33.0 - 37.0 G/DL) 34.3 Last 24 Hours of Raad Results: Blood cultures April 08 negative Recent Imaging Studies: CT of the chest, abdomen and pelvis April 10 reveals a small layering right- sided pleural effusion, with complete collapse of the right lower lobe with dense consolidation and air bronchograms seen; patchy areas of ground glass opacities in both upper lobes, lingula and left lower lobe; nodular, cirrhotic liver with small volume perihepatic ascites and with a small amount of free fluid extending down into the pelvis; an abnormal complex fluid collection, measuring 5.5 x 5.6 x 9.8 cm, in the gallbladder fossa with multiple internal air locules and prominent surrounding fat stranding and edema tracking from the gallbladder fossa along the right paracolic gutter suspicious for a postop abscess; splenomegaly Assessment/Plan Impression: Persistent fevers status post laparoscopic cholecystectomy 6 days ago likely secondary to an abscess within the gallbladder fossa suggested on the CAT scan from earlier this morning. This will require drainage, which should be able to be accomplished by IR. The findings on the CT of the chest suggests possible pneumonia, with a small effusion, not suggestive of an empyema, and this should be covered by the antibiotics needed for the presumed gallbladder fossa abscess. Suggestion: 1. Would pursue IR drainage of the gallbladder fossa 2. TRC/incentive spirometry and attempt to obtain sputum for culture 3. Add Flagyl 500 mg IV every 8 hours after the abscess is drained 4. Continue Ceftriaxone pending above
[2016-04-10 15:18] VITALS: BP 138/70
[2016-04-10 15:36] VITALS: BP 110/60
[2016-04-10 21:46] VITALS: BP 142/78
[2016-04-11 06:15] VITALS: BP 132/78
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
[2016-04-11 08:05] LABS: ABSOLUTE BASOPHIL COUNT 0 /CUMM (0.0-0.2); ABSOLUTE EOSINOPHIL COUNT 0.4 /CUMM (0.0-0.7); ABSOLUTE GRANULOCYTE CT 6.9 /CUMM (1.4-6.5); ABSOLUTE LYMPH COUNT 1.3 /CUMM (1.2-3.4); BASOPHIL % 0.4 % (0.0-2.0); EOSINOPHIL % 3.7 % (0-5); HEMATOCRIT 31.6 % (42-52); MEAN CORPUSCULAR HGB 32.3 PG (27.0-31.0); MEAN CORPUSCULAR HGB CONC 34.7 G/DL (33.0-37.0); MEAN PLATELET VOLUME 8.3 FL (7.4-10.4); PLATELET COUNT 73 /CUMM (130-400); RBC DISTRIBUTION WIDTH 14.7 % (11.5-14.5); RED BLOOD CELL CT 3.39 /CUMM (4.70-6.10); WHITE BLOOD CELL COUNT 9.6 /CUMM (4.8-10.8)
--- NOTE | 2016-04-11 08:21 | PN- General Surgery ---
Surgical Brief Attending Note Brief Attending Note: pt is afebrile and normal wbc but has had persistent ruq pain I reviewed the CT scan and it is not surprising that he has some RUQ fluid as he is cirrhotic and had an infected gallbladder with stones. It is reasonable to IR drain the fluid over the liver and culture it. Please note that the appearance of questionable abscess in the gallbladder fossa is partially secondary to the fact that at surgery we placed 2 pieces of surgicell material in the fossa for purposes of hemostasis and this sometimes will give the appearance of air and tissue as it dissolves.
[2016-04-11 08:28] LABS: PT 13.5 SEC (9.4-12.5)
--- NOTE | 2016-04-11 11:06 | PN- Infect Dx ---
Subjective Subjective: Afebrile without complaints at present status post aspiration of the gallbladder fossa collection earlier today. Objective Last 24 Hrs of Vital Signs/I&O Vital Signs Date Time Temp Pulse Resp B/P Pulse O2 O2 Flow FiO2 Ox Delivery Rate 04/11 0817 78 128/80 04/11 0615 98.0 78 18 132/78 93 Nasal 2.0L Cannula 04/11 0000 91 Nasal 2.0L Cannula 04/10 2146 98.9 90 18 142/78 91 Nasal 2.0L Cannula 04/10 1600 Nasal 2.0L Cannula 04/10 1536 99.2 87 20 110/60 91 04/10 1518 99.5 90 18 138/70 90 Intake & Output 04/11 1600 04/11 0800 04/11 0000 Intake Total 660 240 Output Total 100 1050 225 Balance -100 -390 15 Intake, IV 600 Intake, Oral 60 240 Output, Urine 100 1050 225 Physical Exam Other Physical Findings: He appears comfortable in no acute distress Lungs decreased breath sounds at the right base Heart regular rhythm with no murmur Abdomen is distended, minimally tender on palpation of the right upper quadrant, with positive bowel sounds; drain in place in the right upper quadrant with bloody fluid Extremities no cyanosis, clubbing or edema Results Last 24 Hours of Lab Results: Laboratory Tests 04/11 0720 Chemistry Sodium (137 - 145 mmol/L) 133 L Potassium (3.5 - 5.1 mmol/L) 4.1 Chloride (98 - 107 mmol/L) 93 L Carbon Dioxide (22 - 30 mmol/L) 32 H Anion Gap (5 - 16) 8 BUN (9 - 20 mg/dL) 5 L Creatinine (0.7 - 1.2 mg/dL) 0.6 L Estimated GFR (>60 ml/min) > 60 BUN/Creatinine Ratio (7 - 25 %) 8.3 Total Bilirubin (0.2 - 1.3 mg/dL) 1.5 H Direct Bilirubin (< 0.4 mg/dL) 1.1 H AST (17 - 59 U/L) 31 ALT (21 - 72 U/L) 30 Alkaline Phosphatase (< 127 U/L) 114 Total Protein (6.3 - 8.2 g/dL) 5.3 L Albumin (3.5 - 5.0 g/dL) 2.3 L Coagulation PT (9.4 - 12.5 SEC) 13.5 H INR (0.90 - 1.17) 1.29 H Hematology CBC w Diff NO MAN DIFF REQ WBC (4.8 - 10.8 /CUMM) 9.6 RBC (4.70 - 6.10 /CUMM) 3.39 L Hgb (14.0 - 18.0 G/DL) 11.0 L Hct (42 - 52 %) 31.6 L MCV (80.0 - 94.0 FL) 93.0 MCH (27.0 - 31.0 PG) 32.3 H RDW (11.5 - 14.5 %) 14.7 H Plt Count (130 - 400 /CUMM) 73 L MPV (7.4 - 10.4 FL) 8.3 Gran % (42.2 - 75.2 %) 72.0 Lymphocytes % (20.5 - 51.1 %) 13.4 L Monocytes % (1.7 - 9.3 %) 10.5 H Eosinophils % (0 - 5 %) 3.7 Basophils % (0.0 - 2.0 %) 0.4 Absolute Granulocytes (1.4 - 6.5 /CUMM) 6.9 H Absolute Lymphocytes (1.2 - 3.4 /CUMM) 1.3 Absolute Monocytes (0.10 - 0.60 /CUMM) 1.0 H Absolute Eosinophils (0.0 - 0.7 /CUMM) 0.4 Absolute Basophils (0.0 - 0.2 /CUMM) 0 PUBS MCHC (33.0 - 37.0 G/DL) 34.7 Last 24 Hours of Raad Results: Blood cultures 2 April 08 negative Urine culture April 10 negative Gallbladder fossa collection April 11 pending, with gram stain revealing moderate white blood cells and no organisms Assessment/Plan Impression: Stable with temperatures and white blood cell count normal on Ceftriaxone empirically now Day 3 of treatment for possible abscess in the gallbladder fossa status post laparoscopic cholecystectomy 1 week ago now status post drainage of the collection seen on the recent CT scan. The findings on the CT of the chest suggests possible multifocal pneumonia, with dense consolidation in the right lower lobe along with complete collapse as well as patchy opacities bilaterally, and the Ceftriaxone should provide adequate coverage for this. Suggestion: 1. Follow-up culture of the aspiration of the gallbladder fossa collection 2. Continue TRC 3. Continue Ceftriaxone pending above
[2016-04-11 12:05] VITALS: BP 120/76
[2016-04-11 14:06] VITALS: BP 130/80
--- NOTE | 2016-04-11 15:51 | CT SCAN REPORT ---
PROCEDURE: CAT scan guided abscess drainage INDICATION: Patient is status post recent cholecystectomy. Fever of unknown origin. CT imaging suspicious for postoperative abscess within the gallbladder fossa. ACCESS: 12 Indonesian locking pigtail catheter SPECIMEN: Culture Specimen were appropriately labeled and sent to the laboratory for evaluation with request to inform the referring physician of results. INTERVENTIONAL RADIOLOGIST: Martin Bourgeois M.D. MEDICATION ADMINISTRATION: Moderate sedation was provided under the direct supervision of a interventional radiology nurse. A total dosage of 1 mg Versed and 100 mcg Fentanyl was administered in divided doses. 1% local lidocaine was also administered. CONSENT: Informed consent was obtained from the patient prior to the procedure. During this process, the procedure and potential alternatives was explained along with the intended outcome and benefits. The risks of the procedure, including the possibility of an unsuccessful procedure, as well as the risk of not doing the procedure were discussed. The patient was given the opportunity to ask any questions regarding the procedure and appeared competent to make medical decisions. A signed consent form which documents this discussion was placed in the medical record. A final timeout was completed. TECHNIQUE: The patient was brought to the CAT scan room and placed in the supine position. CAT scan images of abdomen were obtained to localize a gallbladder fossa abscess. An area of the patient's right abdomen was prepped and draped in standard sterile fashion. 10ml of 1% lidocaine was used to obtain local anesthesia of the skin and deeper tissues. An 5 fr. One-Step needle was passed through the skin and placed into the abscess using CT fluoroscopic guidance. Thin, blood-tinged (nonclotting) fluid was aspirated. A guidewire was then passed through the one step needle and coiled within the abscess. This was confirmed with CT fluoroscopic imaging. The access needle was removed. A series of tissue dilators numbering 8, 10 and 12 were used to dilate the tract. A 12 Indonesian locking pigtail catheter was passed over the wire and placed within the abscess. One suture was used to secure the catheter to the skin. A StatLock device and sterile dressing was applied. The catheter was attached to a gravity collection bag. SAMPLE: Approximately 25 mL of thin, blood-tinged (nonclotting) fluid was aspirated in the room. A sample was sent for culture. COMPLICATIONS: The patient tolerated the procedure well without complications. He was transferred to his room in good condition. CONCLUSION: CAT scan guided abscess drainage as described. PLAN: Flush pigtail catheter with 10 mL normal saline twice daily.
--- NOTE | 2016-04-11 17:13 | PN- Att Addend ---
Attending Addendum Attending Brief Note Patient admitted with gallstone pancreatitis status post cholecystectomy. History of alcohol abuse with cirrhosis of liver and chronic low platelets. Patient had episodes of binge drinking around and . Postop course complicated with the CT scan findings showing questionable abscess formation. IR placed drain today which is mostly bloody drainage. Looking at the operative note from cholecystectomy it was noted that Surgicel was placed to control the bleeding. In case patient continues to have bloody drainage through the IR placed drain we will transfuse platelets. Discussed with the patient the care plan.
[2016-04-11 23:35] VITALS: BP 140/74
[2016-04-12 06:31] VITALS: BP 122/64
[2016-04-12 08:36] LABS: MEAN CORPUSCULAR HGB CONC 34.6 G/DL (33.0-37.0)
[2016-04-12 08:43] LABS: PT 14.1 SEC (9.4-12.5)
[2016-04-12 08:45] LABS: ABSOLUTE BASOPHIL COUNT 0.1 /CUMM (0.0-0.2); ABSOLUTE EOSINOPHIL COUNT 0.4 /CUMM (0.0-0.7); ABSOLUTE GRANULOCYTE CT 5.9 /CUMM (1.4-6.5); ABSOLUTE LYMPH COUNT 1.5 /CUMM (1.2-3.4); ABSOLUTE MONOCYTE COUNT 0.7 /CUMM (0.10-0.60); BASOPHIL % 1.1 % (0.0-2.0); EOSINOPHIL % 5.1 % (0-5); GRANULOCYTE % 67.6 % (42.2-75.2); HEMATOCRIT 31.8 % (42-52); MEAN CORPUSCULAR HGB 32.4 PG (27.0-31.0); MEAN CORPUSCULAR VOLUME 93.6 FL (80.0-94.0); PLATELET COUNT 82 /CUMM (130-400); RBC DISTRIBUTION WIDTH 14.5 % (11.5-14.5); WHITE BLOOD CELL COUNT 8.7 /CUMM (4.8-10.8)
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
[2016-04-12 14:13] VITALS: BP 142/80
--- NOTE | 2016-04-12 14:38 | PN- Infect Dx ---
Subjective Subjective: MAXIMUM TEMPERATURE 100.5. He feels better with decreased pain in the right upper quadrant. He denies shortness of breath or cough but does note right sided chest pain. Objective Last 24 Hrs of Vital Signs/I&O Vital Signs Date Time Temp Pulse Resp B/P Pulse O2 O2 Flow FiO2 Ox Delivery Rate 04/12 1413 99.2 79 20 142/80 92 Room Air 04/12 0631 98.2 70 20 122/64 94 Nasal 2.0L Cannula 04/12 0000 98.9 04/12 0000 98.9 04/12 0000 Nasal 2.0L Cannula 04/11 2335 100.5 85 20 140/74 94 Nasal 2.0L Cannula 04/11 2306 100.5 Intake & Output 04/12 1600 04/12 0800 04/12 0000 Intake Total 360 360 600 Output Total 250 210 0 Balance 110 150 600 Intake, Oral 360 360 600 Output, 10 0 Drainage Output, Urine 250 200 Physical Exam Other Physical Findings: He appears more comfortable in no acute distress Lungs crackles at the right base Heart regular rhythm with no murmur Abdomen is mildly distended, decreased tenderness on palpation of the right upper quadrant, with positive bowel sounds; drain in place with serosanguineous drainage, with 60 mL output yesterday and 10 mL overnight Extremities no cyanosis, clubbing or edema Results Last 24 Hours of Lab Results: Laboratory Tests 04/12 07 Chemistry Sodium (137 - 145 mmol/L) 134 L Potassium (3.5 - 5.1 mmol/L) 4.2 Chloride (98 - 107 mmol/L) 93 L Carbon Dioxide (22 - 30 mmol/L) 32 H Anion Gap (5 - 16) 9 BUN (9 - 20 mg/dL) 7 L Creatinine (0.7 - 1.2 mg/dL) 0.6 L Estimated GFR (>60 ml/min) > 60 BUN/Creatinine Ratio (7 - 25 %) 11.7 Total Bilirubin (0.2 - 1.3 mg/dL) 1.5 H Direct Bilirubin (< 0.4 mg/dL) 1.1 H AST (17 - 59 U/L) 36 ALT (21 - 72 U/L) 34 Alkaline Phosphatase (< 127 U/L) 108 Total Protein (6.3 - 8.2 g/dL) 5.4 L Albumin (3.5 - 5.0 g/dL) 2.3 L Coagulation PT (9.4 - 12.5 SEC) 14.1 H INR (0.90 - 1.17) 1.35 H Hematology CBC w Diff NO MAN DIFF REQ WBC (4.8 - 10.8 /CUMM) 8.7 RBC (4.70 - 6.10 /CUMM) 3.40 L Hgb (14.0 - 18.0 G/DL) 11.0 L Hct (42 - 52 %) 31.8 L MCV (80.0 - 94.0 FL) 93.6 MCH (27.0 - 31.0 PG) 32.4 H RDW (11.5 - 14.5 %) 14.5 Plt Count (130 - 400 /CUMM) 82 L MPV (7.4 - 10.4 FL) 9.0 Gran % (42.2 - 75.2 %) 67.6 Lymphocytes % (20.5 - 51.1 %) 17.6 L Monocytes % (1.7 - 9.3 %) 8.6 Eosinophils % (0 - 5 %) 5.1 H Basophils % (0.0 - 2.0 %) 1.1 Absolute Granulocytes (1.4 - 6.5 /CUMM) 5.9 Absolute Lymphocytes (1.2 - 3.4 /CUMM) 1.5 Absolute Monocytes (0.10 - 0.60 /CUMM) 0.7 H Absolute Eosinophils (0.0 - 0.7 /CUMM) 0.4 Absolute Basophils (0.0 - 0.2 /CUMM) 0.1 PUBS MCHC (33.0 - 37.0 G/DL) 34.6 Last 24 Hours of Raad Results: Blood cultures 2 April 08 negative Urine culture April 10 negative Aspirate of gallbladder fossa collection April 11 negative after 1 day Assessment/Plan Impression: Stable status post aspiration of 25 mL of thin, blood-tinged fluid from the gallbladder fossa yesterday, with cultures so far negative. He remains on Ceftriaxone now Day 4 of treatment for possible abscess in the gallbladder fossa , now 8 days status post laparascopic cholecystectomy, versus pneumonia, with a low-grade fever yesterday but with white blood cell count normal. Suggestion: 1. Follow-up final culture of the aspiration of the gallbladder fossa collection 2. Continue TRC 3. Continue Ceftriaxone pending above
--- NOTE | 2016-04-12 16:48 | PN- Att Addend ---
Attending MD Review Statement Attending Statement Attending MD Statement: examined this patient, discuss w/resident/PA/ENGINE TESTER, agreed w/resident/PA/ENGINE TESTER, reviewed EMR data (avail), discussed w/nursing, discussed w/ case mgmt Attending Assessment/Plan: Patient seen and examined at bedside. Right upper quadrant drain placed by IR still draining blood-tinged fluid. We'll continue to monitor its output and once the output is decreased will remove the drain. We will follow up on culture results from the fluid sent from the drain. We will continue to monitor for fevers and if patient spikes fever we will try to broaden the coverage. Infectious disease is on board and will discuss with them in case patient spikes fever. Discussed with patient the care plan.
--- NOTE | 2016-04-12 16:50 | Discharge Summary ---
Visit Information Visit Dates Admission Date: 04/03/16 Hospital Course Allergies: Coded Allergies: shrimp (Intermediate, EDEMA 04/03/16) Discharge Instructions General Discharge Information Code Status: Full Code Copies To: EVA PRUITT MD
--- NOTE | 2016-04-12 16:58 | PN- General Surgery ---
Surgical Brief Attending Note Brief Attending Note: pt reports feeling more comfortable since placement of drain serous appearing and cultures negative to date pt on antibiotics LFT's improved and consistent with cirrhosis ID input appreciated My surgical opinion would be that the drain could be removed if output is less than 30cc/day and would leave antibiotic decision to ID thank you
[2016-04-12 22:58] VITALS: BP 120/60
[2016-04-13 06:40] VITALS: BP 118/70
[2016-04-13 08:16] LABS: ABSOLUTE BASOPHIL COUNT 0 /CUMM (0.0-0.2); ABSOLUTE EOSINOPHIL COUNT 0.4 /CUMM (0.0-0.7); ABSOLUTE GRANULOCYTE CT 4.6 /CUMM (1.4-6.5); ABSOLUTE LYMPH COUNT 1.3 /CUMM (1.2-3.4); ABSOLUTE MONOCYTE COUNT 0.7 /CUMM (0.10-0.60); BASOPHIL % 0.5 % (0.0-2.0); EOSINOPHIL % 5.2 % (0-5); GRANULOCYTE % 65.3 % (42.2-75.2); MEAN CORPUSCULAR HGB 31.8 PG (27.0-31.0); MEAN CORPUSCULAR HGB CONC 34.2 G/DL (33.0-37.0); MEAN CORPUSCULAR VOLUME 92.9 FL (80.0-94.0); MEAN PLATELET VOLUME 8.3 FL (7.4-10.4); PLATELET COUNT 91 /CUMM (130-400); RBC DISTRIBUTION WIDTH 14.1 % (11.5-14.5); RED BLOOD CELL CT 3.44 /CUMM (4.70-6.10)
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
[2016-04-13 08:33] LABS: PT 13.6 SEC (9.4-12.5)
[2016-04-13 15:23] VITALS: BP 110/70
--- NOTE | 2016-04-13 15:28 | PN- Att Addend ---
Attending MD Review Statement Attending Statement Attending MD Statement: examined this patient, discuss w/resident/PA/ELEMENTARY ELL TEACHER, agreed w/resident/PA/ELEMENTARY ELL TEACHER, reviewed EMR data (avail), discussed w/nursing Attending Assessment/Plan: Patient seen and examined at bedside and agree with the resident's care plan. Right upper quadrant pain in setting of fluid collection around the liver status post cholecystectomy. Drain placed in right upper quadrant is draining sanguinous fluid. Had 65 mL drainage over the last 24 hours. We will continue to monitor the output. Continue with IV antibiotics for now. Monitor for fever and in case he has any high fevers will call infectious disease and broaden his antibiotic coverage. Discussed with patient the care plan.
[2016-04-13 22:31] VITALS: BP 120/60
[2016-04-14 00:51] VITALS: BP 118/60
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
[2016-04-14 06:38] VITALS: BP 122/70
[2016-04-14 08:31] LABS: ABSOLUTE BASOPHIL COUNT 0 /CUMM (0.0-0.2); ABSOLUTE EOSINOPHIL COUNT 0.4 /CUMM (0.0-0.7); ABSOLUTE LYMPH COUNT 1.5 /CUMM (1.2-3.4); ABSOLUTE MONOCYTE COUNT 0.8 /CUMM (0.10-0.60); BASOPHIL % 0.6 % (0.0-2.0); EOSINOPHIL % 5.4 % (0-5); GRANULOCYTE % 64.2 % (42.2-75.2); HEMATOCRIT 34.8 % (42-52); MEAN CORPUSCULAR HGB 31.5 PG (27.0-31.0); MEAN CORPUSCULAR HGB CONC 33.6 G/DL (33.0-37.0); MEAN CORPUSCULAR VOLUME 93.9 FL (80.0-94.0); MEAN PLATELET VOLUME 8.1 FL (7.4-10.4); PLATELET COUNT 127 /CUMM (130-400); RBC DISTRIBUTION WIDTH 14.4 % (11.5-14.5); RED BLOOD CELL CT 3.71 /CUMM (4.70-6.10); WHITE BLOOD CELL COUNT 7.8 /CUMM (4.8-10.8)
[2016-04-14 08:33] LABS: PT 13.8 SEC (9.4-12.5)
--- NOTE | 2016-04-14 10:45 | PN- Infect Dx ---
Subjective Subjective: Afebrile. He feels improved with no significant abdominal discomfort and no further shortness of breath. Objective Last 24 Hrs of Vital Signs/I&O Vital Signs Date Time Temp Pulse Resp B/P Pulse O2 O2 Flow FiO2 Ox Delivery Rate 04/14 1028 122/70 04/14 0638 98.7 70 19 122/70 94 Nasal Cannula 04/14 0051 118/60 04/14 0000 94 Nasal 1.0L Cannula 04/13 2355 18 94 Nasal 1.0L Cannula 04/13 2231 99.4 87 20 120/60 90 Nasal Cannula 04/13 1600 Nasal 1.0L Cannula 04/13 1523 99.1 72 20 110/70 93 Intake & Output 04/14 1600 04/14 0800 04/14 0000 Intake Total 240 240 Output Total 525 0 Balance -285 240 Intake, IV 0 Intake, Oral 240 240 Number 0 Bowel Movements Output, 25 0 Drainage Output, Urine 500 Physical Exam Other Physical Findings: He appears comfortable in no acute distress Lungs crackles at the right base Heart regular rhythm with no murmur Abdomen is distended, mildly tender on palpation of the right upper quadrant, with positive bowel sounds; gallbladder fossa drain in place with 45 mL output yesterday and 25 mL output overnight Extremities no cyanosis, clubbing or edema Results Last 24 Hours of Lab Results: Laboratory Tests 04/14 0647 Chemistry Total Bilirubin (0.2 - 1.3 mg/dL) 1.2 Direct Bilirubin (< 0.4 mg/dL) 0.9 H AST (17 - 59 U/L) 40 ALT (21 - 72 U/L) 30 Alkaline Phosphatase (< 127 U/L) 118 Total Protein (6.3 - 8.2 g/dL) 6.0 L Albumin (3.5 - 5.0 g/dL) 2.6 L Coagulation PT (9.4 - 12.5 SEC) 13.8 H INR (0.90 - 1.17) 1.32 H Hematology CBC w Diff NO MAN DIFF REQ WBC (4.8 - 10.8 /CUMM) 7.8 RBC (4.70 - 6.10 /CUMM) 3.71 L Hgb (14.0 - 18.0 G/DL) 11.7 L Hct (42 - 52 %) 34.8 L MCV (80.0 - 94.0 FL) 93.9 MCH (27.0 - 31.0 PG) 31.5 H RDW (11.5 - 14.5 %) 14.4 Plt Count (130 - 400 /CUMM) 127 L MPV (7.4 - 10.4 FL) 8.1 Gran % (42.2 - 75.2 %) 64.2 Lymphocytes % (20.5 - 51.1 %) 19.3 L Monocytes % (1.7 - 9.3 %) 10.5 H Eosinophils % (0 - 5 %) 5.4 H Basophils % (0.0 - 2.0 %) 0.6 Absolute Granulocytes (1.4 - 6.5 /CUMM) 5.0 Absolute Lymphocytes (1.2 - 3.4 /CUMM) 1.5 Absolute Monocytes (0.10 - 0.60 /CUMM) 0.8 H Absolute Eosinophils (0.0 - 0.7 /CUMM) 0.4 Absolute Basophils (0.0 - 0.2 /CUMM) 0 PUBS MCHC (33.0 - 37.0 G/DL) 33.6 Last 24 Hours of Raad Results: Gallbladder fossa aspirate April 11 negative Assessment/Plan Impression: Stable with temperatures and white blood cell count normal on Ceftriaxone Day 6 of treatment for possible pneumonia, now 3 days status post aspiration of 25 mL of thin, blood-tinged fluid from the gallbladder fossa. The culture of that fluid is negative, making it unlikely that this represents an abscess or infected hematoma now 10 days status post laparascopic cholecystectomy. Suggestion: 1. Further management of the gallbladder fossa drain per surgery 2. Discontinue Ceftriaxone and follow off antibiotics
--- NOTE | 2016-04-14 11:24 | PN- General Surgery ---
Surgical Brief Attending Note Brief Attending Note: Drain cultures have remained negative for bacteria or growth LFT's are almost normal now the CHRIS drainage has been over the last 3 days. From a surgical standpoint it would be reasonable to remove the drain and would leave decision to continue antibiotics up to ID but could probably be discharged home on po antibiotics
[2016-04-14] MEDS ORDERED: VITAMIN D250000 UNIT PO (12:16)
[2016-04-14 15:38] VITALS: BP 112/70
--- NOTE | 2016-04-14 16:46 | PN- Att Addend ---
Attending MD Review Statement Attending Statement Attending MD Statement: examined this patient, discuss w/resident/PA/HOSE MENDER, agreed w/resident/PA/HOSE MENDER, reviewed EMR data (avail), discussed w/nursing Attending Assessment/Plan: Patient seen and examined at bedside and agree with the resident's care plan. Right upper quadrant pain in setting of fluid collection around the liver status post cholecystectomy. Drain placed in right upper quadrant is draining sanguinous fluid. Had 65 mL drainage over the last 24 hours. We will continue to monitor the output. Possible removal of drain tomorrow. Antibiotics were DC 'd as per ID recommendation. We'll monitor the patient off antibiotics. Discussed with patient the care plan. Disposition-possible discharge tomorrow if drain is removed and patient remains afebrile.
[2016-04-14 22:41] VITALS: BP 108/70
[2016-04-15 06:35] VITALS: BP 100/67
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
[2016-04-15 08:34] LABS: ABSOLUTE BASOPHIL COUNT 0 /CUMM (0.0-0.2); ABSOLUTE EOSINOPHIL COUNT 0.4 /CUMM (0.0-0.7); ABSOLUTE GRANULOCYTE CT 5.4 /CUMM (1.4-6.5); ABSOLUTE LYMPH COUNT 1.6 /CUMM (1.2-3.4); ABSOLUTE MONOCYTE COUNT 0.8 /CUMM (0.10-0.60); BASOPHIL % 0.5 % (0.0-2.0); EOSINOPHIL % 4.8 % (0-5); GRANULOCYTE % 65.7 % (42.2-75.2); HEMATOCRIT 34.7 % (42-52); MEAN CORPUSCULAR HGB 31.9 PG (27.0-31.0); MEAN CORPUSCULAR VOLUME 93.7 FL (80.0-94.0); MEAN PLATELET VOLUME 7.9 FL (7.4-10.4); PLATELET COUNT 138 /CUMM (130-400); RBC DISTRIBUTION WIDTH 14.4 % (11.5-14.5); WHITE BLOOD CELL COUNT 8.3 /CUMM (4.8-10.8)
[2016-04-15] MEDS ORDERED: PERCOCET 5-3251 EACH PO (10:42)
--- NOTE | 2016-04-15 13:03 | PN- Infect Dx ---
Subjective Subjective: Afebrile. He feels improved with no complaints at this time. Objective Last 24 Hrs of Vital Signs/I&O Vital Signs Date Time Temp Pulse Resp B/P Pulse O2 O2 Flow FiO2 Ox Delivery Rate 04/15 1201 70 110/60 04/15 0635 98.3 71 20 100/67 91 Room Air 04/15 0000 Room Air 1.0L 04/14 2241 98.8 75 20 108/70 94 Nasal Cannula 04/14 1600 Nasal 1.0L Cannula 04/14 1538 98.2 91 20 112/70 92 Intake & Output 04/15 1600 04/15 0800 04/15 0000 Intake Total 760 Output Total 260 3 Balance -260 757 Intake, IV 10 Intake, Oral 750 Output, 10 3 Drainage Output, Urine 250 Physical Exam Other Physical Findings: He appears comfortable in no acute distress Lungs few crackles at the right base Heart regular rhythm with no murmur Abdomen is distended, tender on palpation, with no guarding or rebound, gallbladder fossa drain remains in place, with 38 mL output yesterday and 10 mL overnight Results Last 24 Hours of Lab Results: Laboratory Tests 04/15 0630 Hematology CBC w Diff NO MAN DIFF REQ WBC (4.8 - 10.8 /CUMM) 8.3 RBC (4.70 - 6.10 /CUMM) 3.70 L Hgb (14.0 - 18.0 G/DL) 11.8 L Hct (42 - 52 %) 34.7 L MCV (80.0 - 94.0 FL) 93.7 MCH (27.0 - 31.0 PG) 31.9 H RDW (11.5 - 14.5 %) 14.4 Plt Count (130 - 400 /CUMM) 138 MPV (7.4 - 10.4 FL) 7.9 Gran % (42.2 - 75.2 %) 65.7 Lymphocytes % (20.5 - 51.1 %) 19.0 L Monocytes % (1.7 - 9.3 %) 10.0 H Eosinophils % (0 - 5 %) 4.8 Basophils % (0.0 - 2.0 %) 0.5 Absolute Granulocytes (1.4 - 6.5 /CUMM) 5.4 Absolute Lymphocytes (1.2 - 3.4 /CUMM) 1.6 Absolute Monocytes (0.10 - 0.60 /CUMM) 0.8 H Absolute Eosinophils (0.0 - 0.7 /CUMM) 0.4 Absolute Basophils (0.0 - 0.2 /CUMM) 0 PUBS MCHC (33.0 - 37.0 G/DL) 34.0 Last 24 Hours of Raad Results: No recent cultures Assessment/Plan Impression: Stable with temperatures and white blood cell count remaining normal off antibiotics after 1 week of treatment for probable pneumonia, with culture from the gallbladder fossa collection negative. His right upper quadrant discomfort persists now 11 days status post cholecystectomy and is of unclear significance. Suggestion: 1. Await removal of the gallbladder fossa drain later today 2. Continue to follow off antibiotics
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
[2016-04-15 14:16] VITALS: BP 122/80
[2016-04-15] MEDS ORDERED: VITAMIN D250000 UNIT PO (15:32)
--- NOTE | 2016-04-15 15:33 | PN- Att Addend ---
Attending MD Review Statement Attending Statement Attending MD Statement: examined this patient, discuss w/resident/PA/OPTIMIZATION ANALYST, agreed w/resident/PA/OPTIMIZATION ANALYST, reviewed EMR data (avail), discussed w/case mgmt Attending Assessment/Plan: Patient seen and examined at bedside and agree with the resident's care plan. Right upper quadrant pain in setting of fluid collection around the liver status post cholecystectomy. Drain placed in right upper quadrant to drain the fluid collection. Had minimal drainage over the last 24 hours. Drain removed by IR today. Antibiotics were DC'd as per ID recommendation on Friday and pt was monitored the patient off antibiotics. Remains afebrile. DC home today. Discussed with patient the care plan. Pt was told to abstain from alcohol completely and was told to f/u with PCP which was setup for him.
--- NOTE | 2016-04-15 17:00 | INTERVENTIONAL RADIOLOGY RPT ---
EXAMINATION: REMOVAL OF RIGHT UPPER QUADRANT DRAINAGE CATHETER CLINICAL INFORMATION: 55-year-old male status post recent cholecystectomy. Patient had fever of unknown origin, CT demonstrated a postoperative fluid collection in the gallbladder fossa, the patient is now status post percutaneous drainage of the collection. Cultures from the collection were negative. The patient has minimal residual output from the drainage catheter. Removal is requested. COMPARISON: Catheter placement 04/11/2015. TECHNIQUE: Informed consent was obtained from the patient prior to the procedure. During this process, the procedure and potential alternatives was explained along with the intended outcome and benefits. The risks of the procedure, including the possibility of an unsuccessful procedure, as well as the risk of not doing the procedure were discussed. The patient was given the opportunity to ask any questions regarding the procedure and appeared competent to make medical decisions. A signed consent form which documents this discussion was placed in the medical record. A final timeout was completed. The dressing over the right upper quadrant drainage catheter was removed. The site was prepped and draped in the usual sterile fashion. The retention suture was cut, the catheter was cut and removed in its entirety without immediate complication. A sterile dressing was placed over the incision site. IMPRESSION: Successful removal of right upper quadrant percutaneous drainage catheter.
== END 2016-04-15 18:20 | DRG 263 ==
LOC: ERH 12:18 → 2NA 16:13 → ERHI 16:13 → 2NA 21:58
PROVIDERS: Internal Medicine; Physician Assistant; Physician Assistant Surgical; Student in an Organized Health Care Education/Training Program; ADMIT Internal Medicine
PROC: 0FT44ZZ Resection of Gallbladder, Percutaneous Endoscopic Approach (ICD-10-PCS; principal; 2016-04-04)
PROC: 0W9F30Z Drainage of Abdominal Wall with Drainage Device, Percutaneous Approach (ICD-10-PCS; 2016-04-11)
PROC: 2W53XYZ Removal of Other Device on Abdominal Wall (ICD-10-PCS; 2016-04-15)
DX: K85.10 Biliary acute pancreatitis without necrosis or infection (principal); K21.9 Gastro-esophageal reflux disease without esophagitis; E11.9 Type 2 diabetes mellitus without complications; Z79.4 Long term (current) use of insulin; K70.30 Alcoholic cirrhosis of liver without ascites; F17.210 Nicotine dependence, cigarettes, uncomplicated; L40.9 Psoriasis, unspecified; F10.21 Alcohol dependence, in remission; Z87.898 Personal history of other specified conditions; K91.870 Postprocedural hematoma of a digestive system organ or structure following a digestive system procedure; Y83.6 Removal of other organ (partial) (total) as the cause of abnormal reaction of the patient, or of later complication, without mention of misadventure at the time of the procedure; Y92.239 Unspecified place in hospital as the place of occurrence of the external cause; K80.00 Calculus of gallbladder with acute cholecystitis without obstruction
CPT/HCPCS: 2NAP; 74181; 87075; 36415; 74177; 75989; 81001; 82436; 87040; 87070; 87086; 88304; 93005; 93010; 96361; 96374; 96375; 96376; 97116-GO; 97162-GP; 97530-GO; G0480; J0131; J0690; J0696; J0713; J1170; J1650; J1815; J1885; J2250; J2405; J3010; J3370; J7040; J7042; J7120; Q2036; Q9965